=== PATIENT | female | born 1955 | race Caucasian/White ===

== ENCOUNTER 2020-08-04 07:23 | Inpatient (IN) ==
[2020-08-04] MEDS ORDERED: SODIUM CHLORIDE 0.9% 1000ML 1,000 ML IV ONE (07:42)
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
[2020-08-04 08:06] LABS: Basophils # (auto) 0.03 K/uL (0-0.2); Basophils % (auto) 0.2 %; Eosinophils # (auto) 0.08 K/uL (0-0.5); Eosinophils % (auto) 0.6 %; Hematocrit (blood only) 40.3 % (37-47); Hemoglobin 14.3 g/dL (12.0-16.0); Immature Granulocytes # (auto) 0.01 K/uL (0.00-0.02); Immature Granulocytes % (auto) 0.1 %; Lymphocytes # (auto) 1.55 K/uL (1.2-3.4); Lymphocytes % (auto) 11.4 %; Mean Corpuscular Hemoglobin 30.6 pg (25-34); Mean Corpuscular Hgb Conc 35.5 g/dL (32-36); Mean Corpuscular Volume 86.3 fL (80-100); Mean Platelet Volume 10.8 fL (7.4-10.4); Monocytes # (auto) 1.03 K/uL (0.11-0.59); Monocytes % (auto) 7.6 %; Neutrophils # (auto) 10.87 K/uL (1.4-6.5); Neutrophils % (auto) 80.1 %; Platelet Count 256 K/uL (130-400); RDW Coefficient of Variation 13.3 % (11.5-14.5); RDW Standard Deviation 42.1 fL (36.4-46.3); Red Blood Count 4.67 M/uL (4.2-5.4); White Blood Count 13.57 K/uL (4.8-10.8)
[2020-08-04 08:21] LABS: Albumin Level 3.4 gm/dl (3.4-5.0); BUN Creatinine Ratio 11.6 (10-20); Calcium 9.6 mg/dl (8.5-10.1); Creatinine Clr Calc Pharmacy 55.9 ml/min; Est GFR (African American) 77.2; Est GFR (Non-African American) 66.6; Potassium 2.9 mmol/L (3.5-5.1)
[2020-08-04 08:25] LABS: Albumin Globulin Ratio 0.7 (0.9-2); Bilirubin,Total 0.7 mg/dl (0.2-1); Globulin 4.7 gm/dl (2.5-4.0); Total Protein 8.1 gm/dl (6.4-8.2)
--- NOTE | 2020-08-04 08:30 | CT Scan Report ---
CT SCAN OF THE ABDOMEN AND PELVIS WITHOUT IV CONTRAST CLINICAL HISTORY: Left lower quadrant abdominal pain. Bloating. COMPARISON STUDY: Abdominal CT dated 07/31/2020. TECHNIQUE: CT scan of the abdomen and pelvis is performed from the lung bases to the proximal femora. Images are reviewed in the axial, sagittal, and coronal planes. IV contrast was not administered for this examination. Note that the examination is significantly suboptimal without IV contrast. A dose lowering technique was utilized adhering to the principles of ALARA. CT DOSE: 481.60 mGy.cm FINDINGS: Lung bases: The heart is top normal in size and without pericardial effusion. The lung bases are juliana r. There is a small hiatal hernia. Liver: The unenhanced liver is top normal in size and demonstrates diffusely diminished attenuation c onsistent with hepatic steatosis. There is no intrahepatic biliary ductal dilatation. Gallbladder: Surgically absent noting clips in the gallbladder fossa. Spleen: Normal in size and attenuation. Pancreas: Unremarkable. Adrenal glands: Unremarkable. Kidneys: The unenhanced kidneys are normal in size and without hydronephrosis. There are no renal magui culi identified. There is no evidence of contour deforming renal mass lesion. Abdominal vasculature: The abdominal aorta is normal in course and caliber. Bowel: There is moderate to advanced colonic diverticulosis. There is significant wall thickening wit h pericolonic inflammation and fluid involving the sigmoid colon consistent with acute diverticulitis . This has worsened as compared to 07/31/2020. No organized fluid collection is seen on this unenhanc ed examination to indicate abscess. No bowel obstruction is seen. The appendix is well-visualized an d normal. Peritoneum: There is no intraperitoneal free air or abdominal ascites. There is a small fat-containin g umbilical hernia. Lymphadenopathy: Prominent retroperitoneal lymph nodes measure up to 9 mm in short axis. These are li naima reactive. Pelvic viscera: The bladder is normal as visualized. The uterus is surgically absent. No adnexal lesi on is seen. Skeletal structures: The skeletal structures are osteopenic. No lytic or blastic lesions are seen. Sc lerotic change is noted in the sacroiliac joints. IMPRESSION: 1. Moderate to advanced colonic diverticulosis with evidence of severe acute sigmoid diverticulitis. The degree of inflammation has significantly increased as compared to 07/31/2020. 2. No intraperitoneal free air is identified. There is no evidence of organized fluid collection to s uggest abscess on this unenhanced examination. 3. Hepatic steatosis. 4. Additional findings as above. ACT 112: Negative or not required by law. Electronically signed by: Remy Dang M.D. 08/04/2020 8:29 AM
[2020-08-04] MEDS ORDERED: PIPERACILLIN/TAZOBACTAM 4.5 GM/120 ML BAG IV ONE (08:57)
[2020-08-04] MEDS ORDERED: PIPERACILL/TAZOBAC CONSULT ACTIVE PRN ×2 (08:57→12:04)
[2020-08-04] MEDS: POTASSIUM CHLORIDE / WTR 10 MEQ/100 ML PLCT IV SCH ×2 (09:45→12:07)
[2020-08-04] MEDS ORDERED: POTASSIUM CHLORIDE CRTAB 20 MEQ TABCR PO STA ×2 (10:47→19:51)
--- NOTE | 2020-08-04 10:59 | History & Physical Report ---
Date of Service August 04, 2020 Assessment & Plan (1) Sigmoid diverticulitis: This is a 64-year-old female who has significant past medical history of T2DM, HTN, hypothyroidism, IBS, history of C. difficile, history of H. pylori, history of diverticulitis who presents to ED secondary to worsening symptoms in regards to diagnosis of diverticulitis x4 days. Pt failed outpt management of acute diverticulitis with trial of oral augmentin. Admit to med/surg IV zosyn NPO except sips/chips/meds consult general surg IV morphine severe pain/ APAP POmoderate pain - both PRN NSS + 20meq KCL 100cc/hr (2) Hypokalemia: K 2.9 10 meq KCL krider x 2 ordered in ED 40meq KCL orally repeat bmp @ 1900 - replete as necessary (3) HTN (hypertension): BP elevated in ED, likely in setting of pain and did not take a.m. meds continue metoprolol and losartan hold HCTZ for now given NPO status, resume as able (4) T2DM (type 2 diabetes mellitus): a1c 6.8 05/2020 currently not on any hypoglycemic agents BSG 134 on admission, will monitor accuchecks if BSG is consistently elevated will add insulin coverage, but for now monitor (5) Hypothyroid: continue levothyroxine (6) DVT prophylaxis: SQ Lovenox 40mg q24h Disposition: admit to medical Follow up: PCP Dr. Sauer upon discharge Pt was seen and examined in collaboration with Dr. Panda, please see addendum History of Present Illness Chief Complaint: Worsening diverticulitis x4 days. Primary Care Provider: Maisha Sauer MD This is a 64-year-old female who has significant past medical history of T2DM, HTN, hypothyroidism, IBS, history of C. difficile, history of H. pylori, history of diverticulitis who presents to ED secondary to worsening symptoms in regards to diagnosis of diverticulitis x4 days. Patient has been experiencing left lower quadrant abdominal pain for approximately 1 week. She was seen and evaluated in ED on 07/31 and diagnosed with acute sigmoid diverticulitis. Due to history of quinolone allergy she was placed on oral Augmentin x3 days. She was discharged home and unfortunately symptoms have not improved. She continues to have left lower quadrant abdominal pain with occasional radiation up to her left upper quadrant. She has been mostly doing liquid diet although she did try Pasta last evening and symptoms worsen. She denies fever, chills, sweats, lightheadedness, dizziness, syncope, chest pain, shortness breath, palpitations, cough, emesis, dysuria, increased urgency or frequency with urination. She does complain of mild nausea and stools are more, "pasty." Last BM was yesterday. She states overall symptoms started approximately 1 week ago. She was seen and evaluated by PCP recently secondary to nausea, diarrhea and epigastric pain. She was placed on cholestyramine. She states after 1 dose of cholestyramine her symptoms started. She does have prior history of diverticulitis. Last colonoscopy 05/30/2019 revealed sigmoid diverticulosis, hemorrhoids otherwise normal. In ED patient made hemodynamically stable. Lab work notable for leukocytosis 13.57k, H&H stable 14.3 and 40.3, platelet 256, K2.9, BUN 11, creatinine 0.90, glucose 134. CT scan abdomen pelvis revealed moderate to advanced colonic diverticulosis with evidence of severe acute sigmoid diverticulitis. The degree of inflammation is significantly worsened from previous study on 07/31/2020. No intraperitoneal free air is identified and no evidence of organized fluid collection to suggest abscess. She was started on IV Zosyn. Allergies Allergy/AdvReac Type Severity Reaction Status Date / Time Cipro Allergy HIVES Verified 04/04/11 22:43 ciprofloxacin Allergy HIVES Verified 08/04/20 08:30 Quinolones Allergy . Verified 08/04/20 08:30 codeine AdvReac Mild VOMITING Verified 08/04/20 08:30 lidocaine AdvReac Mild EMESIS Verified 08/04/20 08:30 Home Medications Medication Instructions Recorded Confirmed Type hydrochlorothiazide 12.5 mg PO HS 11/09/18 08/04/20 History lactobacillus combination no.4 3,000 mmu cells PO DAILY 11/09/18 08/04/20 History [Probiotic] losartan 50 mg PO HS 11/09/18 08/04/20 History amoxicillin-pot clavulanate 1 tab PO TID #30 tab 07/31/20 08/04/20 Rx [Augmentin] ondansetron 4 mg PO Q6H PRN #14 tab 07/31/20 08/04/20 Rx Lactobacillus rhamnosus GG 1 cap PO QDL 08/04/20 08/04/20 History [Culturelle] atorvastatin 10 mg PO HS 08/04/20 08/04/20 History fluticasone propionate [Flonase] 1 spray INTRANASAL QAM 08/04/20 08/04/20 History levothyroxine 88 mcg PO DAILY 08/04/20 08/04/20 History loratadine [Claritin] 10 mg PO QAM 08/04/20 08/04/20 History metoprolol succinate 50 mg PO QAM 08/04/20 08/04/20 History pantoprazole 40 mg PO QAM 08/04/20 08/04/20 History Past Med/Surg History Medical History C. difficile colitis Diverticulitis H. pylori infection Hemorrhoids History of gastric polyp HTN (hypertension) Hypothyroid IBS (irritable bowel syndrome) PVC (premature ventricular contraction) T2DM (type 2 diabetes mellitus) Surgical History History of colonoscopy with polypectomy History of total abdominal hysterectomy Hx of removal of ovary S/P cholecystectomy Family History Mother Hypertension Social History Smoking Status: Never smoker Hx Alcohol Use: No Hx Substance Use: No Preferred Language: Tunisian Communication Ability: Effective Awning Craftsman Required: No Beliefs That Will Affect Care: Mandaeism Mandaeism Beliefs: Church Refuses blood products marital status: Current Living Situation: Alone current occupational status: retired current occupation: Retired [employer] How many Children do You have: 6 How many Children do You have Comment: raised 6 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 Other Information That Helps Us Care for You: No Feels Safe at Home: Yes Safety Concerns: Feels Safe At This Time Assistive Devices: Glasses Review of Systems Review of Systems: All systems reviewed & are unremarkable except as noted in HPI & below Physical Exam Physical Exam: Constitutional: WD/WN, vitals as above, NAD, sitting up in bed, pleasant, conversing easily Head: Normocephalic, Atraumatic Eyes: PERRL, conjunctivae normal, anicteric sclerae ENMT: external ear and nose normal, oropharynx normal Neck: trachea midline, no thyromegaly normal visual inspection Respiratory: normal respiratory effort, lungs clear to auscultation, no wheeze, rales, rhonchi. Normal insp/exp effort, no accessory muscle use Cardiovascular: RRR, no murmur, no edema Vessels: no JVD or carotid bruit Chest: normal inspection of chest Abdomen: minimally distended, tender to palpation LLQ, no guarding, rebound, rigidity, hypoactive bowel sounds, soft, no hepatosplenomegaly appreciated Musculoskeletal: no cyanosis or clubbing, extremities motor strength 5/5 Skin: no rashes, warm and dry normal turgor Neurologic: PERRL, EOMI, accommodation nl, no face palsy, no dysarthria CN's II-XI intact bilaterally and moves all extremities Psychiatric: A+Ox3, euthymic affect Lymphatic: no cervical or axillary lymphadenopathy : deferred Results & Data Results & [facility] ([facility]) Vital Signs (Past 12 Hours) Vital Signs Temp Pulse Pulse Resp BP BP Pulse Ox 08/04/20 09:23 78 18 166/95 H 98 08/04/20 07:26 36.9 C 96 H 20 137/88 97 Laboratory Results Short CBC 08/04/20 Range/Units 07:48 WBC 13.57 H (4.8-10.8) K/uL Hgb 14.3 (12.0-16.0) g/dL Hct 40.3 (37-47) % Plt Count 256 (130-400) K/uL BMP 08/04/20 07:48 Sodium 136 Potassium 2.9 L Chloride 103 Carbon Dioxide 25 BUN 11 Creatinine 0.90 Glucose 134 H Calcium 9.6 Liver Function 08/04/20 Range/Units 07:48 Total Bilirubin 0.7 (0.2-1) mg/dl AST 22 (15-37) U/L ALT 28 (12-78) U/L Alkaline Phosphatase 108 (45-117) U/L Albumin 3.4 (3.4-5.0) gm/dl Diagnostic Findings CT Abd/Pelvis: IMPRESSION: 1. Moderate to advanced colonic diverticulosis with evidence of severe acute sigmoid diverticulitis. The degree of inflammation has significantly increased as compared to 07/31/2020. 2. No intraperitoneal free air is identified. There is no evidence of organized fluid collection to suggest abscess on this unenhanced examination. 3. Hepatic steatosis. 4. Additional findings as above. Medications Administered Potassium Chloride (K Ralf / Wtr) 10 meq in 100 mls @ 100 mls/hr IV Q1H GUCCI Stop: 08/04/20 11:29 Last Infusion: 08/04/20 10:49 Dose: 0 mls/hr Documented by: [id number] Admin: 08/04/20 09:45 Dose: 100 mls/hr Documented by: [id number] Discontinued Medications Sodium Chloride (Nss 1000ml) 1,000 mls @ 999 mls/hr IV .Q1H1M ONE Stop: 08/04/20 08:42 Last Infusion: 08/04/20 08:59 Dose: 0 mls/hr Documented by: [id number] Admin: 08/04/20 07:57 Dose: 999 mls/hr Documented by: [id number] Piperacillin Sod/Tazobactam Sod (Zosyn) 4.5 gm in 120 mls @ 240 mls/hr IV NOW ONE Stop: 08/04/20 09:26 Last Infusion: 08/04/20 09:40 Dose: 0 mls/hr Documented by: [id number] Admin: 08/04/20 09:09 Dose: 240 mls/hr Documented by: [id number] Code Status & VTE Plan Code Status Full Code VTE Prophylaxis Plan VTE Prophylaxis will be ordered: Yes Supervising Physician Co-Signing Physician Notes Attending addendum The patient was seen and examined in medical floor She was admitted with left lower quadrant pain which has not been getting any better with Augmentin for diverticulitis She has been in feeling a little bit better since admission Denies any fever and/or chills, any nausea and or vomiting On examination No apparent distress at rest Hemodynamically stable Chest-clear to auscultate bilaterally Heart-S1-S2, regular. No murmur appreciated Abdomen-soft, mildly tender left lower quadrant, no guarding and no rigidity. Bowel sounds present Labs and imaging studies reviewed Has acute diverticulitis.Surgery consulted. Continue with current intravenous antibiotic Intravenous fluids and pain medications Agree with assessment and plan as outlined above by FORTINO Edwards Dr
[2020-08-04] MEDS ORDERED: MAGNESIUM HYDROXIDE SUSP 30 ML UDC PO PRN (12:04)
[2020-08-04] MEDS ORDERED: DEXTROSE 50% 50 ML SYRINGE IV PRN (12:04)
[2020-08-04] MEDS ORDERED: GLUCOSE 10 TABS/TUBE PO PRN (12:04)
[2020-08-04] MEDS ORDERED: METOPROLOL SUCC 50MG EXT REL TAB PO SCH (12:04)
[2020-08-04] MEDS ORDERED: GLUCOSE 40% GEL 15 GM TUBE PO PRN (12:04)
[2020-08-04] MEDS ORDERED: GLUCAGON FOR INJ 1 MG VIAL SQ PRN (12:04)
[2020-08-04] MEDS ORDERED: CARBOHYDRATES FOR HYPOGLYCEMIA PO PRN (12:04)
[2020-08-04] MEDS ORDERED: ONDANSETRON INJ 2 MG/ML 2 ML VIAL IV PRN (12:04)
[2020-08-04] MEDS ORDERED: ALUMINUM/MAGNESIUM SUSP 30 ML UDC PO PRN (12:04)
[2020-08-04] MEDS ORDERED: ACETAMINOPHEN 325 MG TAB PO PRN (12:04)
[2020-08-04] MEDS ORDERED: MoRPHine SULFATE 4 MG/ML 1 ML CARP\\VIAL IV PRN (12:04)
[2020-08-04] MEDS ORDERED: POLYETHYLENE (MIRALAX) 17 GM PACK PO PRN (12:04)
--- NOTE | 2020-08-04 13:13 | Surgery Consultation ---
Date of Consultation August 04, 2020 Assessment & Plan (1) Sigmoid diverticulitis: This is a 64yF with a PMH of DM2, HTN, hypothyroid, h/o cholecystectomy and hysterectomy who presents to the [facility] ED on 08/04/20 with complaints of left lower quadrant abdominal pain. The patient initially presented to the ER on 07/31 and was diagnosed with diverticulitis, she was prescribed a course of oral augmentin and was discharged to home. Unfortunately patient's symptoms worsened prompting her to return for further evaluation. Repeat CT scan noted moderate to advanced colonic diverticulosis with evidence of severe acute sigmoid diverticulitis, and the degree of inflammation has significantly increased as compared to 07/31/2020. There is not evidence of abscess on this scan. Today WBC 13 and patient is afebrile with stable vitals. On examination patient's abdomen is soft, mildly distended, and is ttp infraumbilically and towards LLQ. She does have a history of diverticulitis, but states her last flare up was >10 years ago. Last colonoscopy 1 year ago apparently unremarkable. Patient is currently stable, therefore no plans for acute surgical intervention at this time. Agree with admission for IV abx, IVF, and NPO with sips and bowel rest for today. We will continue to follow patient closely. History of Present Illness Attending Physician: Darien Panda MD History of Present Illness This is a 64yF with a PMH of DM2, HTN, hypothyroid, h/o cholecystectomy and hysterectomy who presents to the [facility] ED on 08/04/20 with complaints of abdominal pain. Patient reports having some right sided upper abdominal pain starting about 3 weeks ago, she went to her PCP who ordered her an US and per patient it was unremarkable. The pain was thought to be gastric reflux in nature. Last she returned to her PCP's office due to ongoing pain that radiated towards her back well as she started having some loose yellow appearing stool. She was prescribed cholestyramine and took one dose when she subsequently developed LLQ pain. She ultimately decided to come to the ED on 07/31 due to the LLQ pain and a CT a/p at that time revealed acute sigmoid diverticulitis without abscess or perforation. She was discharged to home from the ER with a course of Augmentin. Patient reports taking the abx, however she has noticed worsening LLQ pain that comes and goes. When the pain comes she rates it a 7 or 8/10 in severity. Due to this she returned to the ER and a repeat CT a/p showed moderate to advanced colonic diverticulosis with evidence of severe acute sigmoid dive rticulitis. The degree of inflammation has significantly increased as compared to 07/31/2020. WBC 13 and patient afebrile with stable vitals. Patient reports having a bout of loose stool yesterday and reports passing some flatus. She feels bloated and nauseated at times. She denies any fevers/chills, bouts of emesis, chest pain or shortness of breath. She states she has had about ~4 episodes of diverticulitis in the past, but her last flare up was almost 10 years ago. She reports having a colonoscopy last May due to history of polyps, but states it was unremarkable at that time. Allergies Allergy/AdvReac Type Severity Reaction Status Date / Time Cipro Allergy HIVES Verified 04/04/11 22:43 ciprofloxacin Allergy HIVES Verified 08/04/20 08:30 Quinolones Allergy . Verified 08/04/20 08:30 codeine AdvReac Mild VOMITING Verified 08/04/20 08:30 lidocaine AdvReac Mild EMESIS Verified 08/04/20 08:30 Home Medications Medication Instructions Recorded Confirmed Type hydrochlorothiazide 12.5 mg PO HS 11/09/18 08/04/20 History lactobacillus combination no.4 3,000 mmu cells PO DAILY 11/09/18 08/04/20 History [Probiotic] losartan 50 mg PO HS 11/09/18 08/04/20 History amoxicillin-pot clavulanate 1 tab PO TID #30 tab 07/31/20 08/04/20 Rx [Augmentin] ondansetron 4 mg PO Q6H PRN #14 tab 07/31/20 08/04/20 Rx Lactobacillus rhamnosus GG 1 cap PO QDL 08/04/20 08/04/20 History [Culturelle] atorvastatin 10 mg PO HS 08/04/20 08/04/20 History fluticasone propionate [Flonase] 1 spray INTRANASAL QAM 08/04/20 08/04/20 History levothyroxine 88 mcg PO DAILY 08/04/20 08/04/20 History loratadine [Claritin] 10 mg PO QAM 08/04/20 08/04/20 History metoprolol succinate 50 mg PO QAM 08/04/20 08/04/20 History pantoprazole 40 mg PO QAM 08/04/20 08/04/20 History Patient History Medical History C. difficile colitis Diverticulitis H. pylori infection Hemorrhoids History of gastric polyp HTN (hypertension) Hypothyroid IBS (irritable bowel syndrome) PVC (premature ventricular contraction) T2DM (type 2 diabetes mellitus) Surgical History History of colonoscopy with polypectomy History of total abdominal hysterectomy Hx of removal of ovary S/P cholecystectomy Family History Mother Hypertension Social History Smoking Status: Never smoker Hx Alcohol Use: No Hx Substance Use: No Preferred Language: Italian Communication Ability: Effective Doctor Of Nursing Practice Required: No Beliefs That Will Affect Care: Temple Temple Beliefs: Rastafarian Refuses blood products marital status: Current Living Situation: Alone current occupational status: retired current occupation: Retired [employer] How many Children do You have: 6 How many Children do You have Comment: raised 6 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 Other Information That Helps Us Care for You: No Feels Safe at Home: Yes Safety Concerns: Feels Safe At This Time Assistive Devices: Walker Review of Systems Constitutional: no fever and no chills Respiratory: no dyspnea Cardiovascular: no chest pain Gastrointestinal: + abdominal pain (RUQ/epigastric regions and LLQ), + bloating, + nausea and + diarrhea/loose stools; no vomiting Physical Exam Physical Exam: awake/alert Constitutional: well developed, well nourished and comfortable; no acute distress Respiratory: normal respiratory effort Gastrointestinal (Abdomen): Inspection/Auscultation: + abdomen distended (mild) and + abdominal surgical scar (from prior hysterectomy and leidy; well healed) Percussion/Palpation: + abdomen tender (ttp infraumbilically and t owards LLQ) and abdomen soft Results & Data ([facility]) Vital Signs (Past 12 Hours) Vital Signs Temp Pulse Pulse Pulse Resp BP BP 08/04/20 12:16 36.7 C 74 18 127/83 08/04/20 12:00 36.8 C 74 18 127/83 08/04/20 11:00 80 18 154/80 H 08/04/20 09:23 78 18 166/95 H 08/04/20 07:26 36.9 C 96 H 20 137/88 Pulse Ox 08/04/20 12:16 100 08/04/20 12:00 100 08/04/20 11:00 98 08/04/20 09:23 98 08/04/20 07:[address] SCAN OF THE ABDOMEN AND PELVIS WITHOUT IV CONTRAST CLINICAL HISTORY: Left lower quadrant abdominal pain. Bloating. COMPARISON STUDY: Abdominal CT dated 07/31/2020. TECHNIQUE: CT scan of the abdomen and pelvis is performed from the lung bases to the proximal femora. Images are reviewed in the axial, sagittal, and coronal planes. IV contrast was not administered for this examination. Note that the examination is significantly suboptimal without IV contrast. A dose lowering technique was utilized adhering to the principles of ALARA. CT DOSE: 481.60 mGy.cm FINDINGS: Lung bases: The heart is top normal in size and without pericardial effusion. The lung bases are clear. There is a small hiatal hernia. Liver: The unenhanced liver is top normal in size and demonstrates diffusely diminished attenuation consistent with hepatic steatosis. There is no intrahepatic biliary ductal dilatation. Gallbladder: Surgically absent noting clips in the gallbladder fossa. Spleen: Normal in size and attenuation. Pancreas: Unremarkable. Adrenal glands: Unremarkable. Kidneys: The unenhanced kidneys are normal in size and without hydronephrosis. There are no renal calculi identified. There is no evidence of contour deforming renal mass lesion. Abdominal vasculature: The abdominal aorta is normal in course and caliber. Bowel: There is moderate to advanced colonic diverticulosis. There is significant wall thickening with pericolonic inflammation and fluid involving the sigmoid colon consistent with acute diverticulitis. This has worsened as compared to 07/31/2020. No organized fluid collection is seen on this unenhanced examination to indicate abscess. No bowel obstruction is seen. The appendix is well-visualized and normal. Peritoneum: There is no intraperitoneal free air or abdominal ascites. There is a small fat-containing umbilical hernia. Lymphadenopathy: Prominent retroperitoneal lymph nodes measure up to 9 mm in short axis. These are likely reactive. Pelvic viscera: The bladder is normal as visualized. The uterus is surgically absent. No adnexal lesion is seen. Skeletal structures: The skeletal structures are osteopenic. No lytic or blastic lesions are seen. Sclerotic change is noted in the sacroiliac joints. IMPRESSION: 1. Moderate to advanced colonic diverticulosis with evidence of severe acute sigmoid diverticulitis. The degree of inflammation has significantly increased as compared to 07/31/2020. 2. No intraperitoneal free air is identified. There is no evidence of organized fluid collection to suggest abscess on this unenhanced examination. 3. Hepatic steatosis. 4. Additional findings as above. ACT 112: Negative or not required by law Electronically signed by: Remy Dang M.D. 08/04/2020 8:29 AM PG Care Time/CCT Total # of Minutes Spent Total Time Spent with Patient: Total time spent is greater than 50% in coordination of care (as documented) at patient's floor/unit and/or counseling patient: Coding Level of Care Code 73405 Initial Inpt Care Lvl 3 Diagnoses Sigmoid diverticulitis K57.32
[2020-08-04] MEDS: NSS + 20MEQ KCL 20 MEQ/1,000 ML BAG IV SCH (13:25)
[2020-08-04] MEDS: METOPROLOL SUCC 50MG EXT REL TAB PO SCH (13:25)
[2020-08-04] MEDS: PIPERACILLIN/TAZOBACTAM 3.375 GM in DEXTROSE 5% 100 ML IV SCH ×2 (14:43→21:48)
[2020-08-04] MEDS ORDERED: Nursing to Pharmacy Communication SCH (18:30)
[2020-08-04 19:30] LABS: Appearance Urine Clear (Clear); Bilirubin Urine Negative (Negative); Blood Urine Negative (Negative); Color Urine Yellow; Glucose Urine UA Negative (Negative); Ketones Urine Trace (Negative); Leukocyte Esterase Urine Negative (Negative); Nitrite Urine Negative (Negative); Protein Urine Negative (Negative); Specific Gravity Urine 1.019 (1.000-1.030); Urobilinogen Urine Negative (Negative)
[2020-08-04 19:43] LABS: BUN Creatinine Ratio 8.3 (10-20); Calcium 8.8 mg/dl (8.5-10.1); Creatinine Clr Calc Pharmacy 59.3 ml/min; Est GFR (African American) 82.8; Est GFR (Non-African American) 71.4; Potassium 3.4 mmol/L (3.5-5.1)
[2020-08-04] MEDS ORDERED: ATORVASTATIN 10 MG TAB PO SCH (21:00)
[2020-08-04] MEDS: ENOXAPARIN INJ 40 MG/0.4 ML SYR SQ SCH (21:48)
[2020-08-04] MEDS: LOSARTAN POTASSIUM 50 MG TAB PO SCH (21:49)
[2020-08-04] MEDS ORDERED: ACETAMINOPHEN 1000 MG/100 ML IV IV PRN (22:24)
[2020-08-05] MEDS: NSS + 20MEQ KCL 20 MEQ/1,000 ML BAG IV SCH ×3 (00:53→23:47)
[2020-08-05] MEDS: LEVOTHYROXINE SODIUM 88 MCG TABLET PO SCH (05:45)
[2020-08-05] MEDS: PIPERACILLIN/TAZOBACTAM 3.375 GM in DEXTROSE 5% 100 ML IV SCH ×3 (05:45→22:10)
[2020-08-05 06:34] LABS: Basophils # (auto) 0.01 K/uL (0-0.2); Basophils % (auto) 0.1 %; Eosinophils # (auto) 0.08 K/uL (0-0.5); Eosinophils % (auto) 0.9 %; Hematocrit (blood only) 35.6 % (37-47); Hemoglobin 12.1 g/dL (12.0-16.0); Immature Granulocytes # (auto) 0.01 K/uL (0.00-0.02); Immature Granulocytes % (auto) 0.1 %; Lymphocytes # (auto) 1.38 K/uL (1.2-3.4); Lymphocytes % (auto) 15.9 %; Mean Corpuscular Hemoglobin 30.1 pg (25-34); Mean Corpuscular Volume 88.6 fL (80-100); Mean Platelet Volume 10.6 fL (7.4-10.4); Monocytes # (auto) 0.86 K/uL (0.11-0.59); Monocytes % (auto) 9.9 %; Neutrophils # (auto) 6.32 K/uL (1.4-6.5); Neutrophils % (auto) 73.1 %; Platelet Count 237 K/uL (130-400); RDW Coefficient of Variation 13.4 % (11.5-14.5); RDW Standard Deviation 43.7 fL (36.4-46.3); Red Blood Count 4.02 M/uL (4.2-5.4); White Blood Count 8.66 K/uL (4.8-10.8)
[2020-08-05 07:05] LABS: Albumin Level 2.7 gm/dl (3.4-5.0); BUN Creatinine Ratio 9.6 (10-20); Calcium 8.4 mg/dl (8.5-10.1); Creatinine Clr Calc Pharmacy 61.5 ml/min; Est GFR (African American) 86.4; Est GFR (Non-African American) 74.6; Potassium 3.5 mmol/L (3.5-5.1)
[2020-08-05 07:08] LABS: Albumin Globulin Ratio 0.7 (0.9-2); Bilirubin,Total 0.7 mg/dl (0.2-1); Globulin 4.1 gm/dl (2.5-4.0); Total Protein 6.8 gm/dl (6.4-8.2)
[2020-08-05] MEDS ORDERED: METOPROLOL SUCC 50MG EXT REL TAB PO SCH (09:00)
[2020-08-05] MEDS: PANTOprazole 40 MG TAB PO SCH (09:33)
[2020-08-05] MEDS: ADVANCED PROBIOTIC 1250 MG CAPSULE PO SCH (09:33)
[2020-08-05] MEDS: LORATADINE 10 MG TAB PO SCH (09:33)
[2020-08-05] MEDS: METOPROLOL SUCC 50MG EXT REL TAB PO SCH (09:33)
[2020-08-05] MEDS: ATORVASTATIN 10 MG TAB PO SCH (09:33)
[2020-08-05] MEDS: FLUTICASONE PROPIONATE NA SPR 16 GM BTL NAE SCH (09:34)
--- NOTE | 2020-08-05 10:31 | Surgery Progress Note ---
Date of Service August 05, 2020 Assessment & Plan (1) Sigmoid diverticulitis: Clinically much improved. White blood cell count is now also normal. Would keep n.p.o./ice chips for today and continue IV antibiotics. Hopefully could start clears tomorrow. Doubt surgical intervention will be needed however we will continue to follow along for now. Admission and Anticipated Discharge Date Admission Date: August 04, 2020 Subjective Patient seen. Feeling much better today. The distention and discomfort are much improved. Physical Exam Constitutional: WD/WN, vitals as above no acute distress and not ill appearing Eyes: PERRL, conjunctivae normal, anicteric sclerae EOM intact bilaterally ENMT: external ear and nose normal, oropharynx normal Ears: no hearing i mpairment Neck: trachea midline, no thyromegaly Respiratory: normal respiratory effort; no respiratory distress and does not use accessory muscles Cardiovascular: Rate/Rhythm: regular rate and regular rhythm Gastrointestinal (Abdomen): Abdomen is soft. Mild left lower quadrant tenderness. No peritoneal signs. Minimal distention. Skin: no rashes, warm and dry Psychiatric: Orientation: alert, oriented x 3 and cooperative Results & Data ([facility]) Vital Signs (Past 12 Hours) Vital Signs Temp Pulse Resp BP Pulse Ox 08/05/20 07:00 36.5 C 56 L 18 113/72 99 08/04/20 23:09 37.0 C 65 16 122/77 98 PG Care Time/CCT Total # of Minutes Spent Total Time Spent with Patient: Total time spent is greater than 50% in coordination of care (as documented) at patient's floor/unit and/or counseling patient: Coding Level of Care Code 99511 Subseq Hosp Care Lvl 3 Diagnoses Sigmoid diverticulitis K57.32
--- NOTE | 2020-08-05 15:28 | Hospitalist Progress Note ---
Date of Service August 05, 2020 Assessment & Plan (1) Sigmoid diverticulitis: This is a 64-year-old female who has significant past medical history of T2DM, HTN, hypothyroidism, IBS, history of C. difficile, history of H. pylori, history of diverticulitis who presents to ED secondary to worsening symptoms in regards to diagnosis of diverticulitis x4 days. Pt failed outpt management of acute diverticulitis with trial of oral augmentin. Has been improving since admission Has been on IV zosyn and will continue as of today. Likely discharge home on oral Augmentin.(She is allergic to Cipro and Flagyl) NPO except sips/chips/meds Appreciate input and recommendation from general surgery IV morphine severe pain/ APAP POmoderate pain - both PRN Continue NSS + 20meq KCL 100cc/hr Clinically much better-no fever and/or chills and white count has been normalized Likely to start clears and advance diet as tolerated from tomorrow Possible discharge tomorrow (2) Hypokalemia: K 2.9 10 meq KCL krider x 2 ordered in ED 40meq KCL orally Potassium has been normalized (3) HTN (hypertension): BP elevated in ED, likely in setting of pain and did not take a.m. meds continue metoprolol and losartan hold HCTZ for now given NPO status, resume as able (4) T2DM (type 2 diabetes mellitus): a1c 6.8 05/2020 currently not on any hypoglycemic agents BSG 134 on admission, will monitor accuchecks if BSG is consistently elevated will add insulin coverage, but for now monitor (5) Hypothyroid: continue levothyroxine (6) DVT prophylaxis: SQ Lovenox 40mg q24h Disposition: admit to medical Admission and Anticipated Discharge Date Admission Date: August 04, 2020 Subjective 08/05/2020 The patient was seen and examined in medical floor He has been feeling a lot better today Denies any significant abdominal pain, no distention and no nausea and or vomiting No fever and/or chills Review of Systems Review of Systems: All systems reviewed and are unremarkable except as noted below Physical Exam Physical Exam: Lying in bed comfortably Constitutional: well developed, well nourished and + obese; not ill appearing Eyes: PERRL, conjunctivae normal, anicteric sclerae ENMT: external ear and nose normal, oropharynx normal Neck: trachea midline, no thyromegaly Respiratory: normal respiratory effort; no respiratory distress Auscultation: lungs clear to auscultation bilaterally Cardiovascular: Rate/Rhythm: regular rate and regular rhythm Heart Sounds: no murmur Extremities: no edema Gastrointestinal (Abdomen): Inspection/Auscultation: normal bowel sounds; abdomen not distended Percussion/Palpation: + abdomen tender (Intimately tender left lower quadrant without any guarding and no rigidity) and abdomen soft Musculoskeletal: No acute arthritis in any joint Neurologic: Alert, awake and oriented x3. No focal sensory or motor deficit appreciated Psychiatric: A+Ox3, euthymic affect Results & Data Results & Data ([facility]) Vital Signs (Past 12 Hours) Vital Signs Temp Pulse Resp BP Pulse Ox 08/05/20 15:05 36.5 C 56 L 19 141/76 H 99 08/05/20 07:00 36.5 C 56 L 18 113/72 99 Laboratory Results Short CBC 08/05/20 Range/Units 06:12 WBC 8.66 (4.8-10.8) K/uL Hgb 12.1 (12.0-16.0) g/dL Hct 35.6 L (37-47) % Plt Count 237 (130-400) K/uL BMP 08/04/20 08/05/20 19:04 06:12 Sodium 140 141 Potassium 3.4 L D 3.5 Chloride 109 H 111 H Carbon Dioxide 25 27 BUN 7 8 Creatinine 0.85 0.82 Glucose 101 H 95 Calcium 8.8 8.4 L Liver Function 08/05/20 Range/Units 06:12 Total Bilirubin 0.7 (0.2-1) mg/dl AST 25 (15-37) U/L ALT 30 (12-78) U/L Alkaline Phosphatase 88 (45-117) U/L Albumin 2.7 L (3.4-5.0) gm/dl Urine 08/04/20 Range/Units 18:40 Urine Color Yellow Urine Appearance Clear (Clear) Urine pH 7.0 (4.5-7.5) Ur Specific [place] 1.019 (1.000-1.030) Urine Protein Negative (Negative) Urine Glucose (UA) Negative (Negative) Medications Administered Current Inpatient Medications Acetaminophen (Acetaminophen 325 Mg Tab) 650 mg PO Q4H PRN PRN Reason: pain/fever Stop: 09/03/20 12:03 Last Admin: 08/05/20 09:38 Dose: 650 mg Documented by: Acetaminophen (Acetaminophen 1000 Mg/100 Ml Iv) 1,000 mg IV TID PRN PRN Reason: Pain or Fever Stop: 08/07/20 22:23 Last Admin: 08/04/20 22:36 Dose: 1,000 mg Documented by: Al Hydrox/Mg Hydrox/Simethicone (Aluminum/Magnesium Susp 30 Ml Udc) 30 ml PO Q6H PRN PRN Reason: Dyspepsia Stop: 09/03/20 12:03 Atorvastatin Calcium (Atorvastatin 10 Mg Tab) 10 mg PO QAM [facility] Stop: 09/04/20 08:59 Last Admin: 08/05/20 09:33 Dose: 10 mg Documented by: Dextrose (Dextrose 50% 50 Ml Syringe) 25 - 50 ml IV UD PRN; Protocol PRN Reason: Hypoglycemia Protocol Stop: 09/03/20 12:03 Enoxaparin Sodium (Enoxaparin Inj 40 Mg/0.4 Ml Syr) 40 mg SQ Q24H [facility] Stop: 09/03/20 21:59 Last Admin: 08/04/20 21:48 Dose: 40 mg Documented by: Fluticasone Propionate (Fluticasone Propionate Na Spr 16 Gm Btl) 1 sprays [facility] Stop: 09/04/20 08:59 Last Admin: 08/05/20 09:34 Dose: 1 sprays Documented by: Glucagon (Glucagon For Inj 1 Mg Vial) 1 mg SQ UD PRN; Protocol PRN Reason: Hypoglycemia Protocol Stop: 09/03/20 12:03 Glucose (Glucose 10 Tabs/Tube) 4 - 8 tabs PO UD PRN; Protocol PRN Reason: Hypoglycemia Protocol Stop: 09/03/20 12:03 Glucose (Glucose 40% Gel 15 Gm Tube) 15 - 30 gm PO UD PRN; Protocol PRN Reason: Hypoglycemia Protocol Stop: 09/03/20 12:03 Potassium Chloride/Sodium Chloride (Normal Saline W/20 Meq Kcl) 20 meq in 1,000 mls @ 100 mls/hr IV .Q10H [facility] Stop: 09/03/20 12:29 Last Admin: 08/05/20 11:21 Dose: 100 mls/hr Documented by: Piperacillin Sod/Tazobactam (Sod 3.375 gm/ Dextrose) 115 mls @ 28.75 mls/hr IV Q8H [facility]; Protocol Stop: 08/14/20 13:59 Last Admin: 08/05/20 14:31 Dose: 28.8 mls/hr Documented by: Lactobacillus Acidoph/Casei/Rhamnos (Advanced Probiotic 1250 Mg Capsule) 2 cap PO DAILY [facility] Stop: 09/04/20 08:59 Last Admin: 08/05/20 09:33 Dose: 2 cap Documented by: Levothyroxine Sodium (Levothyroxine Sodium 88 Mcg Tablet) 88 mcg PO DAILYBB [facility] Stop: 09/04/20 06:29 Last Admin: 08/05/20 05:45 Dose: 88 mcg Documented by: Loratadine (Loratadine 10 Mg Tab) [facility] Stop: 09/04/20 08:59 Last Admin: 08/05/20 09:33 Dose: 10 mg Documented by: Losartan Potassium (Losartan Potassium 50 Mg Tab) 50 mg PO [facility] Stop: 09/03/20 20:59 Last Admin: 08/04/20 21:49 Dose: 50 mg Documented by: Magnesium Hydroxide (Magnesium Hydroxide Susp 30 Ml Udc) 30 ml PO Q6H PRN PRN Reason: Constipation Stop: 09/03/20 12:03 Metoprolol Succinate (Metoprolol Succ 50mg Ext Rel Tab) 50 mg PO [facility] Stop: 09/03/20 12:03 Last Admin: 08/05/20 09:33 Dose: 50 mg Documented by: Miscellaneous (Carbohydrates For Hypoglycemia ) 15 - 30 gm PO UD PRN PRN Reason: Hypoglycemia Protocol Stop: 09/03/20 12:03 Miscellaneous Information (Piperacill/Tazobac Consult Active) 1 ea N/A UD PRN PRN Reason: Consult Stop: 09/03/20 12:03 Morphine Sulfate (Morphine Sulfate 4 Mg/Ml 1 Ml Carp\Vial) 4 mg IV Q4H PRN PRN Reason: Severe Pain Stop: 08/18/20 12:03 Ondansetron HCl (Ondansetron Inj 2 Mg/Ml 2 Ml Vial) 4 mg IV Q6H PRN PRN Reason: Nausea Stop: 09/03/20 12:03 Pantoprazole Sodium (Pantoprazole 40 Mg Tab) 40 mg PO [facility] Stop: 09/04/20 08:59 Last Admin: 08/05/20 09:33 Dose: 40 mg Documented by: Polyethylene Glycol (Polyethylene (Miralax) 17 Gm Pack) 17 gm PO DAILY PRN PRN Reason: Constipation Stop: 09/03/20 12:03
[2020-08-05] MEDS: LOSARTAN POTASSIUM 50 MG TAB PO SCH (21:14)
[2020-08-05] MEDS: ENOXAPARIN INJ 40 MG/0.4 ML SYR SQ SCH (21:14)
[2020-08-06 05:30] LABS: Basophils # (auto) 0.03 K/uL (0-0.2); Basophils % (auto) 0.5 %; Eosinophils % (auto) 1.5 %; Hematocrit (blood only) 35.7 % (37-47); Hemoglobin 11.8 g/dL (12.0-16.0); Immature Granulocytes # (auto) 0.02 K/uL (0.00-0.02); Immature Granulocytes % (auto) 0.3 %; Lymphocytes # (auto) 1.75 K/uL (1.2-3.4); Lymphocytes % (auto) 26.3 %; Mean Corpuscular Hemoglobin 29.5 pg (25-34); Mean Corpuscular Hgb Conc 33.1 g/dL (32-36); Mean Corpuscular Volume 89.3 fL (80-100); Mean Platelet Volume 10.5 fL (7.4-10.4); Monocytes # (auto) 0.34 K/uL (0.11-0.59); Monocytes % (auto) 5.1 %; Neutrophils # (auto) 4.42 K/uL (1.4-6.5); Neutrophils % (auto) 66.3 %; Platelet Count 220 K/uL (130-400); RDW Coefficient of Variation 13.2 % (11.5-14.5); RDW Standard Deviation 43.2 fL (36.4-46.3); White Blood Count 6.66 K/uL (4.8-10.8)
[2020-08-06] MEDS: LEVOTHYROXINE SODIUM 88 MCG TABLET PO SCH (05:40)
[2020-08-06] MEDS: PIPERACILLIN/TAZOBACTAM 3.375 GM in DEXTROSE 5% 100 ML IV SCH ×3 (05:40→21:29)
[2020-08-06 06:01] LABS: Albumin Level 2.7 gm/dl (3.4-5.0); BUN Creatinine Ratio 10.4 (10-20); Calcium 8.4 mg/dl (8.5-10.1); Creatinine Clr Calc Pharmacy 73.1 ml/min; Est GFR (African American) 105.1; Est GFR (Non-African American) 90.7; Magnesium 2.1 mg/dl (1.8-2.4); Potassium 3.9 mmol/L (3.5-5.1)
[2020-08-06 06:04] LABS: Albumin Globulin Ratio 0.7 (0.9-2); Bilirubin,Total 0.4 mg/dl (0.2-1); Globulin 3.8 gm/dl (2.5-4.0); Phosphorus 2.3 mg/dl (2.5-4.9); Total Protein 6.5 gm/dl (6.4-8.2)
--- NOTE | 2020-08-06 08:28 | Surgery Progress Note ---
Date of Service August 06, 2020 Assessment & Plan (1) Sigmoid diverticulitis: Patient is clinically feeling much better WBC 6 and patient afebrile She is passing flatus and BM's Abdominal exam improved Will start advancing diet, can begin clears this morning Admission and Anticipated Discharge Date Admission Date: August 04, 2020 Subjective Patient states she is feeling much better. Denies nausea/vomiting. Has some lingering LLQ pain, but otherwise much improved. Tolerating sips of liquids. She is passing flatus and some loose BM's. Physical Exam Physical Exam: awake/alert, ambulating independently Respiratory: normal respiratory effort Gastrointestinal (Abdomen): Inspection/Auscultation: abdomen not distended Percussion/Palpation: + abdomen tender (mild discomfort to palpation in llq) and abdomen soft Results & Data ([facility]) Vital Signs (Past 12 Hours) Vital Signs Temp Pulse Resp BP Pulse Ox 08/06/20 07:19 36.5 C 59 L 18 145/68 H 96 08/05/20 23:42 37.1 C 59 L 16 134/76 99 08/05/20 21:11 36.8 C 67 18 157/85 H 99 PG Care Time/CCT Total # of Minutes Spent Total Time Spent with Patient: Total time spent is greater than 50% in c oordination of care (as documented) at patient's floor/unit and/or counseling patient: Coding Level of Care Code 67823 Subseq Hosp Care Lvl 1 Diagnoses Sigmoid diverticulitis K57.32
[2020-08-06] MEDS: NSS + 20MEQ KCL 20 MEQ/1,000 ML BAG IV SCH ×2 (08:56→17:41)
[2020-08-06] MEDS: ATORVASTATIN 10 MG TAB PO SCH (08:56)
[2020-08-06] MEDS: PANTOprazole 40 MG TAB PO SCH (08:56)
[2020-08-06] MEDS: ADVANCED PROBIOTIC 1250 MG CAPSULE PO SCH (08:56)
[2020-08-06] MEDS: FLUTICASONE PROPIONATE NA SPR 16 GM BTL NAE SCH (08:56)
[2020-08-06] MEDS: METOPROLOL SUCC 50MG EXT REL TAB PO SCH (08:56)
[2020-08-06] MEDS: LORATADINE 10 MG TAB PO SCH (08:56)
[2020-08-06] MEDS ORDERED: POTASSIUM PHOS 3 MMOL/1 ML INFUSION IV ONE (09:44)
[2020-08-06] MEDS ORDERED: POTASSIUM PHOSPHATE 9 MMOL in SODIUM CHLORIDE 0.9% 250 ML IV ONE (10:00)
--- NOTE | 2020-08-06 19:05 | Hospitalist Progress Note ---
Date of Service August 06, 2020 Assessment & Plan (1) Sigmoid diverticulitis: Patient is a 64 yr female with H/O DM II, HTN, hypothyroidism, IBS, history of C. difficile, history of H. pylori, history of diverticulitis who presents to ED secondary to worsening symptoms in regards to diagnosis of diverticulitis x4 days. Acute sigmoid diverticulitis -CT ABD: Moderate to advanced colonic diverticulosis with evidence of severe acute sigmoid diverticulitis. The degree of inflammation has significantly increased as compared to 07/31/2020. No intraperitoneal free air is identified. There is no evidence of organized fluid collection to suggest abscess on this unenhanced examination. Hepatic steatosis. -Clinical improvement -Appreciate surgery input -Continue IV antibiotics -Advance diet as tolerated -Continue IV fluids Diarrhea Stool for C. difficile negative Hypophosphatemia Replete electrolytes as needed (2) Hypokalemia: Replete as needed Monitor (3) HTN (hypertension): BP stable continue metoprolol and losartan Resume HCTZ as able (4) T2DM (type 2 diabetes mellitus): a1c 6.8 05/2020 currently not on any hypoglycemic agents Monitor BGs (5) Hypothyroid: continue levothyroxine (6) DVT prophylaxis: SQ Lovenox CODE STATUS Full Code Disposition: Plan to discharge home when medically stable Admission and Anticipated Discharge Date Admission Date: August 04, 2020 Subjective Patient is seen and examined at bedside Abdominal pain much improved States having 2 loose bowel movements this morning Tolerating liquid diet Denies chest pain, shortness of breath, dizziness, nausea Offers no other complaints Review of Systems Review of Systems: All systems reviewed & are unremarkable except as noted in HPI & below Physical Exam Physical Exam: Physical Exam: Vitals signs as noted above General Appearance:Obese, no apparent distress Head: normocephalic, Atraumatic Eyes: normal inspection, EOMI Neck: supple, Trachea midline Respiratory/Chest: Normal breath sounds, CTA, No accessory muscle use Cardiovascular: S1, S2, No murmur Abdomen/GI:Soft, Left mild tender, Bowel sounds present Extremities/Musculoskelatal:normal inspection, no edema Neurologic/Psych:AAOX3, grossly no focal neurological deficits Skin: normal color, warm Results & Data Results & Data ([facility]) Vital Signs (Past 12 Hours) Vital Signs Temp Pulse Pulse Resp BP Pulse Ox 08/06/20 14:56 36.8 C 58 L 16 144/76 H 99 08/06/20 08:57 63 08/06/20 07:19 36.5 C 59 L 18 145/68 H 96 Laboratory Results Short CBC 08/06/20 Range/Units 05:21 WBC 6.66 (4.8-10.8) K/uL Hgb 11.8 L (12.0-16.0) g/dL Hct 35.7 L (37-47) % Plt Count 220 (130-400) K/uL BMP 08/06/20 05:21 Sodium 142 Potassium 3.9 Chloride 113 H Carbon Dioxide 22 BUN 7 Creatinine 0.69 Glucose 65 L Calcium 8.4 L Liver Function 08/06/20 Range/Units 05:21 Total Bilirubin 0.4 (0.2-1) mg/dl AST 19 (15-37) U/L ALT 28 (12-78) U/L Alkaline Phosphatase 81 (45-117) U/L Albumin 2.7 L (3.4-5.0) gm/dl
[2020-08-06] MEDS: ENOXAPARIN INJ 40 MG/0.4 ML SYR SQ SCH (21:29)
[2020-08-06] MEDS: LOSARTAN POTASSIUM 50 MG TAB PO SCH (21:29)
[2020-08-07] MEDS: PIPERACILLIN/TAZOBACTAM 3.375 GM in DEXTROSE 5% 100 ML IV SCH (05:34)
[2020-08-07] MEDS: LEVOTHYROXINE SODIUM 88 MCG TABLET PO SCH (05:35)
[2020-08-07 06:58] LABS: BUN Creatinine Ratio 7.8 (10-20); Blood Urea Nitrogen 7 mg/dl (7-18); Calcium 8.2 mg/dl (8.5-10.1); Carbon Dioxide 24 mmol/L (21-32); Chloride 114 mmol/L (98-107); Est GFR (African American) 83.9; Est GFR (Non-African American) 72.4; Glucose 91 mg/dl (70-99); Phosphorus 2.4 mg/dl (2.5-4.9)
[2020-08-07 07:05] LABS: Sodium 142 mmol/L (136-145)
--- NOTE | 2020-08-07 09:21 | Surgery Progress Note ---
Date of Service August 07, 2020 Assessment & Plan (1) Sigmoid diverticulitis: doing well will sign off. call if any questions or concerns. Admission and Anticipated Discharge Date Admission Date: August 04, 2020 Subjective continues to feel better everyday. denies pain. tolerating food. Physical Exam Physical Exam: alert. nad abd: soft. very minimal ttp. much improved. Results & Data ([facility]) Vital Signs (Past 12 Hours) Vital Signs Temp Pulse Resp BP BP Pulse Ox 08/07/20 06:56 36.5 C 54 L 18 153/85 H 99 08/06/20 23:43 37 C 65 16 158/78 H 98 08/06/20 21:28 60 18 164/79 H 98 PG Care Time/CCT Total # of Minutes Spent Total Time Spent with Patient: Total time spent is greater than 50% in coordination of care (as documented) at patient's floor/unit and/or counseling patient: Coding Level of Care Code 69876 Subseq Hosp Care Lvl 2 Diagnoses Sigmoid diverticulitis K57.32
[2020-08-07] MEDS: FLUTICASONE PROPIONATE NA SPR 16 GM BTL NAE SCH (09:36)
[2020-08-07] MEDS: ATORVASTATIN 10 MG TAB PO SCH (09:37)
[2020-08-07] MEDS: ADVANCED PROBIOTIC 1250 MG CAPSULE PO SCH (09:37)
[2020-08-07] MEDS: LORATADINE 10 MG TAB PO SCH (09:37)
[2020-08-07] MEDS: METOPROLOL SUCC 50MG EXT REL TAB PO SCH (09:37)
[2020-08-07] MEDS: NSS + 20MEQ KCL 20 MEQ/1,000 ML BAG IV SCH (09:37)
[2020-08-07] MEDS: PANTOprazole 40 MG TAB PO SCH (09:37)
--- NOTE | 2020-08-07 13:12 | Hospitalist Progress Note ---
Date of Service August 07, 2020 Assessment & Plan (1) Sigmoid diverticulitis: Patient is a 64 yr female with H/O DM II, HTN, hypothyroidism, IBS, history of C. difficile, history of H. pylori, history of diverticulitis who presents to ED secondary to worsening symptoms in regards to diagnosis of diverticulitis x4 days. Acute sigmoid diverticulitis -CT ABD: Moderate to advanced colonic diverticulosis with evidence of severe acute sigmoid diverticulitis. The degree of inflammation has significantly increased as compared to 07/31/2020. No intraperitoneal free air is identified. There is no evidence of organized fluid collection to suggest abscess on this unenhanced examination. Hepatic steatosis. -Appreciate surgery input -Continue IV Zosyn>> transition to Augmentin upon discharge -Tolerated low fiber diet -Received IV fluids -Plan to discharge home today Diarrhea Stool for C. difficile negative Resolved Hypophosphatemia Replete electrolytes as needed (2) Hypokalemia: Replete as needed Monitor (3) HTN (hypertension): BP stable continue metoprolol and losartan Resume HCTZ as able (4) T2DM (type 2 diabetes mellitus): a1c 6.8 05/2020 currently not on any hypoglycemic agents Monitor BGs (5) Hypothyroid: continue levothyroxine (6) DVT prophylaxis: SQ Lovenox CODE STATUS Full Code Disposition: Plan to discharge home today Admission and Anticipated Discharge Date Admission Date: August 04, 2020 Subjective Patient is seen and examined at bedside States feeling good today Abdominal pain resolved No diarrhea today Tolerated low fiber diet No new complaints Denies chest pain, shortness of breath, dizziness, nausea Review of Systems Review of Systems: All systems reviewed & are unremarkable except as noted in HPI & below Physical Exam Physical Exam: Physical Exam: Vitals signs as noted above General Appearance:Obese, no apparent distress Head: normocephalic, Atraumatic Eyes: normal inspection, EOMI Neck: supple, Trachea midline Respiratory/Chest: Normal breath sounds, CTA, No accessory muscle use Cardiovascular: S1, S2, No murmur Abdomen/GI:Soft, non tender, Bowel sounds present Extremities/Musculoskelatal:normal inspection, no edema Neurologic/Psych:AAOX3, grossly no focal neurological deficits Skin: normal color, warm Results & Data Results & Data ([facility]) Vital Signs (Past 12 Hours) Vital Signs Temp Pulse Resp BP Pulse Ox 08/07/20 06:56 36.5 C 54 L 18 153/85 H 99 Laboratory Results [facility] 08/07/20 05:52 Sodium 142 Potassium TNP Chloride 114 H Carbon Dioxide 24 BUN 7 Creatinine 0.84 Glucose 91 Calcium 8.2 L
--- NOTE | 2020-08-07 13:18 | Discharge Summary ---
Date of Service August 07, 2020 Admission HPI Per Admitting Provider This is a 64-year-old female who has significant past medical history of T2DM, HTN, hypothyroidism, IBS, history of C. difficile, history of H. pylori, history of diverticulitis who presents to ED secondary to worsening symptoms in regards to diagnosis of diverticulitis x4 days. Patient has been experiencing left lower quadrant abdominal pain for approximately 1 week. She was seen and evaluated in ED on 07/31 and diagnosed with acute sigmoid diverticulitis. Due to history of quinolone allergy she was placed on oral Augmentin x3 days. She was discharged home and unfortunately symptoms have not improved. She continues to have left lower quadrant abdominal pain with occasional radiation up to her left upper quadrant. She has been mostly doing liquid diet although she did try Pasta last evening and symptoms worsen. She denies fever, chills, sweats, lightheadedness, dizziness, syncope, chest pain, shortness breath, palpitations, cough, emesis, dysuria, increased urgency or frequency with urination. She does complain of mild nausea and stools are more, "pasty." Last BM was yesterday. She states overall symptoms started approximately 1 week ago. She was seen and evaluated by PCP recently secondary to nausea, diarrhea and epigastric pain. She was placed on cholestyramine. She states after 1 dose of cholestyramine her symptoms started. She does have prior history of diverticulitis. Last c olonoscopy 05/30/2019 revealed sigmoid diverticulosis, hemorrhoids otherwise normal. In ED patient made hemodynamically stable. Lab work notable for leukocytosis 13.57k, H&H stable 14.3 and 40.3, platelet 256, K2.9, BUN 11, creatinine 0.90, glucose 134. CT scan abdomen pelvis revealed moderate to advanced colonic diverticulosis with evidence of severe acute sigmoid diverticulitis. The degree of inflammation is significantly worsened from previous study on 07/31/2020. No intraperitoneal free air is identified and no evidence of organized fluid collection to suggest abscess. She was started on IV Zosyn. Admission Exam Per Admitting Provider Physical Exam Physical Exam: Constitutional: WD/WN, vitals as above, NAD, sitting up in bed, pleasant, conversing easily Head: Normocephalic, Atraumatic Eyes: PERRL, conjunctivae normal, anicteric sclerae ENMT: external ear and nose normal, oropharynx normal Neck: trachea midline, no thyromegaly normal visual inspection Respiratory: normal respiratory effort, lungs clear to auscultation, no wheeze, rales, rhonchi. Normal insp/exp effort, no accessory muscle use Cardiovascular: RRR, no murmur, no edema Vessels: no JVD or carotid bruit Chest: normal inspection of chest Abdomen: minimally distended, tender to palpation LLQ, no guarding, rebound, rigidity, hypoactive bowel sounds, soft, no hepatosplenomegaly appreciated Musculoskeletal: no cyanosis or clubbing, extremities motor strength 5/5 Skin: no rashes, warm and dry normal turgor Neurologic: PERRL, EOMI, accommodation nl, no face palsy, no dysarthria CN's II-XI intact bilaterally and moves all extremities Psychiatric: A+Ox3, euthymic affect Lymphatic: no cervical or axillary lymphadenopathy : deferred Principal Diagnosis Acute sigmoid diverticulitis Hypokalemia Hypophosphatemia Discharge Data Allergies Allergy/AdvReac Type Severity Reaction Status Date / Time Cipro Allergy HIVES Verified 04/04/11 22:43 ciprofloxacin Allergy HIVES Verified 08/04/20 08:30 Quinolones Allergy . Verified 08/04/20 08:30 codeine AdvReac Mild VOMITING Verified 08/04/20 08:30 lidocaine AdvReac Mild EMESIS Verified 08/04/20 08:30 Consultations 08/04/20 09:01 ED Decision to Admit Stat 08/04/20 12:04 Consult General Surgery Routine Procedures Performed CT ABD: Moderate to advanced colonic diverticulosis with evidence of severe acute sigmoid diverticulitis. The degree of inflammation has significantly increased as compared to 07/31/2020. No intraperitoneal free air is identified. There is no evidence of organized fluid collection to suggest abscess on this unenhanced examination. Hepatic steatosis. Ordered Studies 08/04/20 07:42 CT abd pelvis wo con Stat Hospital Course (1) Sigmoid diverticulitis: Patient is a 64 yr female with H/O DM II, HTN, hypothyroidism, IBS, history of C. difficile, history of H. pylori, history of diverticulitis who presents to ED secondary to worsening symptoms in regards to diagnosis of diverticulitis x4 days. Acute sigmoid diverticulitis -CT ABD: Moderate to advanced colonic diverticulosis with evidence of severe acute sigmoid diverticulitis. The degree of inflammation has significantly increased as compared to 07/31/2020. No intraperitoneal free air is identified. There is no evidence of organized fluid collection to suggest abscess on this unenhanced examination. Hepatic steatosis. -Appreciate surgery input -Continue IV Zosyn>> transition to Augmentin upon discharge -Tolerated low fiber diet -Received IV fluids -Plan to discharge home today Diarrhea Stool for C. difficile negative Resolved Hypophosphatemia Replete electrolytes as needed (2) Hypokalemia: Replete as needed Monitor (3) HTN (hypertension): BP stable continue metoprolol and losartan Resume HCTZ as able (4) T2DM (type 2 diabetes mellitus): a1c 6.8 05/2020 currently not on any hypoglycemic agents Monitor BGs (5) Hypothyroid: continue levothyroxine (6) DVT prophylaxis: SQ Lovenox CODE STATUS Full Code Disposition: Plan to discharge home today Total Time Total Time Spent Total Time Spent (In Minutes): 42 minutes Total Time Includes: Examination of the Patient, Discharge Planning, Medication Reconciliation, Communication With Other Providers and Other Discharge Plan Discharge Items Patient Disposition: Home - Self-Care Reason For Visit: ACUTE DIVERTICULITIS,FAILED OUTPT TREATMENT Discharge Diagnosis: Acute sigmoid diverticulitis Hypokalemia Hypophosphatemia Activity: Per Instructions section Exercise/Sports: Gradually increase as tolerated Non-emergency contact: Primary Care Provider Call non-emergency contact if: you have any medication questions, your symptoms worsen, your pain is not controlled, your pain is worsening, your pain is unusual for you, your pain is concerning for you and you have a fever Follow-up/Referrals: Maisha Sauer MD [Primary Care Provider] - (Date & Time 08/11/2020 11:00 AM Provider Maisha Sauer MD Department General Internal Medicine [facility] ) Diet: Carb Consistent or DM2 and Low Fiber Addtl Attending Provider Instructions: Follow-up with your primary care physician Dr. Sauer on 08/11/2020 11:00 AM Follow up with your surgeon as needed Complete the antibiotic course--Augmentin for 1 more week as advised Seek immediate medical attention if your symptoms reoccur or worsen Pending Studies at Discharge: No Stand-Alone Forms: [employer], Smoking Cessation Medications and DC Order Prescriptions: Continued amoxicillin-pot clavulanate [Augmentin] 875-125 mg tablet 1 tab PO TID Qty: 30 RF: 0 ondansetron 4 mg tablet,disintegrating 4 mg PO Q6H PRN (Reason: nausea and vomiting) Qty: 14 RF: 0 metoprolol succinate 50 mg tablet extended release 24 hr 50 mg PO QAM RF: 0 pantoprazole 40 mg tablet,delayed release (DR/EC) 40 mg PO QAM RF: 0 Culturelle 10 billion cell Capsule 1 cap PO QDL RF: 0 fluticasone propionate 50 mcg/actuation [place],Suspension 1 spray INTRANASAL QAM RF: 0 loratadine [Claritin] 10 mg Tablet 10 mg PO QAM RF: 0 levothyroxine 88 mcg Tablet 88 mcg PO DAILY RF: 0 atorvastatin 10 mg tablet 10 mg PO HS RF: 0 losartan 50 mg Tablet 50 mg PO HS RF: 0 hydrochlorothiazide 12.5 mg Tablet 12.5 mg PO HS RF: 0 Probiotic 3 billion cell Capsule 3,000 mmu cells PO DAILY RF: 0 Discharge Orders: Discharge Order (Routine); Ordered 08/07/20 Ordered By: Randy Mckeon/Other Patient Handouts: Low-Fiber Diet Admission Data Admit Date/Time: 08/04/20 09:15 Attending Provider: Randy Osorio Admit Provider: Darien Panda Primary Care Provider: Maisha Sauer Other Providers: Jerald Carroll ; Darien Panda Other Interventions: Discharge Summary Assessment (RN) Last Done: 08/07/20 13:25
== END 2020-08-07 15:14 | disposition home or self-care (01) | DRG 392 ==
LOC: ED 07:23 → 3N 09:15 → SUATTDRO 09:15 → 3N 11:13

== ENCOUNTER 2023-03-23 08:11 | Inpatient (IN) ==
[2023-03-23] MEDS ORDERED: SODIUM CHLORIDE 0.9% 1000ML 1,000 ML IV ONE (08:23)
[2023-03-23 08:52] LABS: Appearance Urine Clear (Clear); Bacteria Urine Automated Negative (Negative); Bilirubin Urine Negative (Negative); Blood Urine Trace (Negative); Color Urine Yellow; Epithelial Cell Urine Auto >30 /lpf (0-5); Glucose Urine UA Negative (Negative); Ketones Urine Trace (Negative); Leukocyte Esterase Urine Trace (Negative); Nitrite Urine Negative (Negative); Protein Urine Negative (Negative); RBC Urine Automated 0-4 /hpf (0-4); Specific Gravity Urine 1.027 (1.000-1.030); Urobilinogen Urine Negative (Negative); pH Urine 5.5 (4.5-7.5)
[2023-03-23] MEDS ORDERED: FAMOTIDINE 20MG IV PUSH 20 MG/5 ML SYR IV STA (09:39)
[2023-03-23] MEDS ORDERED: ONDANSETRON INJ 2 MG/ML 2 ML VIAL IV STA (09:39)
[2023-03-23] MEDS ORDERED: ACETAMINOPHEN 1,000 MG/100 ML VIAL IV STA (09:39)
[2023-03-23 09:40] LABS: Basophils # (auto) 0.04 K/uL (0-0.2); Basophils % (auto) 0.3 %; Eosinophils # (auto) 0.07 K/uL (0-0.50); Eosinophils % (auto) 0.5 %; Hematocrit (blood only) 38.2 % (37.0-47.0); Immature Granulocytes # (auto) 0.05 K/uL (0.01-0.20); Immature Granulocytes % (auto) 0.4 %; Lymphocytes # (auto) 1.54 K/uL (1.2-3.4); Lymphocytes % (auto) 11.7 %; Monocytes # (auto) 1.04 K/uL (0.11-0.59); Monocytes % (auto) 7.9 %; Neutrophils # (auto) 10.39 K/uL (1.40-6.50); Neutrophils % (auto) 79.2 %; RDW Coefficient of Variation 13.2 % (11.5-14.5); RDW Standard Deviation 42.3 fL (36.4-46.3); Red Blood Count 4.34 M/uL (4.20-5.40); White Blood Count 13.13 K/ul (4.8-10.8)
[2023-03-23 09:41] LABS: Albumin Globulin Ratio 1.1 (0.9-2); Albumin Level 3.9 gm/dl (3.4-5.0); BUN Creatinine Ratio 20.8 (10-20); Bilirubin,Total 0.4 mg/dl (0.2-1.0); Calcium 9.4 mg/dl (8.6-10.3); Creatinine Clr Calc Pharmacy 69.2 ml/min; Est GFR (Non-African American) 85.4 ml/min; Globulin 3.7 gm/dl (2.5-4.0); Potassium 3.9 mmol/L (3.5-5.1); Total Protein 7.6 gm/dl (6.0-8.3)
--- NOTE | 2023-03-23 09:41 | Emergency Department Note ---
Impression & Plan Sigmoid diverticulitis, Left lower quadrant abdominal pain, Leukocytosis ED Provider Note NAME: NILESH COOPER AGE: 67 SEX: F ARRIVES VIA: Walk-In INFORMANT: Patient ED PROVIDER(S): Nguyễn Israel MD CHIEF COMPLAINT: Left lower quadrant abdominal pain, diverticulitis. PLAN: Disposition: Admit MEDICAL DECISION MAKING: The patient is a pleasant 57-year-old woman with a past medical history of diverticulitis, type 2 diabetes, hypertension, hypothyroidism, IBS who presents to the emergency department via walk-in for evaluation of continued left lower quadrant pain that persist despite having completed 10-day course of Augmentin twice daily and subsequent seen in this emergency department resumed on Augmentin for 10-day course 3 times daily. She was seen in this emergency department on 03/12 and 03/[address] imaging that demonstrated persistence of her diverticulitis with no abscess or perforation noted. On her recent visit she was offered option for admission however she did prefer trial of outpatient management. She denies any fevers. She reports some nausea denies vomiting. She reports her stool was soft and grayish but denies bloody or black stool. She denies any dizziness, chest pain, shortness of breath, urinary symptoms. On my evaluation the patient is fatigued appearing but no distress, afebrile with blood pressure 140s/80s and vital signs otherwise stable. She appears clinically dry. She has mild tenderness of the left lower quadrant without guarding or rebound. WBC 13K with neutrophil predominance though no left shift. H/H and platelets within normal limits. Chemistry without metabolic acidosis. BUN/creatinine> 20 consistent the patient's clinical dry appearance. Electrolytes and LFTs unremarkable. Lipase not elevated. UA without convincing evidence of infection with epithelial cells present. CT of the abdomen pelvis was performed and demonstrates persistence of acute diverticulitis involving the distal descending colon and sigmoid colon though no significant changes seen since March 14 persistent moderate inflammation and small amount of fluid this evening. No abscess or free air. Upon evaluation patient did report feeling some improvement following IV fluid hydration, famotidine, Zofran and APAP. However, given the persistence of her symptoms she agrees with plan for admission for further management with IV antibiotics. IV Zosyn ordered as patient reports he is status helped in the past. Case was discussed with Samantha Nielsen PAC with Dr. Reyes, [facility] hospitalist, who will evaluate the patient for admission. Triage Nursing notes reviewed and agree them. Prior/outside medical records reviewed Vital Signs: reviewed Differential diagnosis: Gastroenteritis, food borne illness, infections, appendicitis, diverticulitis, inflammatory bowel disease, obstruction, GI bleed, biliary pathology, volvulus, as well as other pathologies. ER treatment provided: See below. Diagnostics interpreted by me: Cardiac Monitoring: An order for continuous cardiac monitoring was placed and demonstrated normal sinus rhythm, 77 bpm, no ectopy. Laboratory studies: See below Imaging studies: See below HPI: The patient is a pleasant 57-year-old woman with a past medical history of diverticulitis, type 2 diabetes, hypertension, hypothyroidism, IBS who presents to the emergency department via walk-in for evaluation of continued left lower quadrant pain that persist despite having completed 10-day course of Augmentin twice daily and subsequent seen in this emergency department resumed on Augmentin for 10-day course 3 times daily. She was seen in this emergency department on 03/12 and 03/[address] imaging that demonstrated persistence of her diverticulitis with no abscess or perforation noted. On her recent visit she was offered option for admission however she did prefer trial of outpatient management. She denies any fevers. She reports some nausea denies vomiting. She reports her stool was soft and grayish but denies bloody or black stool. She denies any dizziness, chest pain, shortness of breath, urinary symptoms. ROS: See above HPI for pertinent positives & negatives. A total of 10 systems reviewed and were otherwise negative. VITALS:See Below PHYSICAL EXAMINATION: GENERAL: Awake, alert, fatigued-appearing, in no distress HENT: Normocephalic, atraumatic. Oropharynx with dry mucous membranes and otherwise unremarkable. EYES: Normal conjunctiva. Sclera non-icteric. NECK: Supple. No nuchal rigidity. FROM. No JVD. RESPIRATORY: Clear to auscultation. CARDIAC: Regular rate, normal rhythm. Extremities warm and well perfused. Pulses equal. ABDOMEN: Soft, non-distended. Mild LLQ tenderness to palpation. No rebound or guarding. No masses. RECTAL: Deferred. MUSCULOSKELETAL: Chest examination reveals no tenderness. The back is symmetrical on inspection without obvious abnormality. There is no CVA tenderness to palpation. No joint edema. LOWER EXTREMITIES: Calves are equal size bilaterally and non-tender. No edema. No discoloration. NEURO: Normal sensorium. No sensory or motor deficits noted. SKIN: No rash or jaundice noted. Nguyễn Israel MD Past Med/Surg History Medical History C. difficile colitis Diverticulitis H. pylori infection Hemorrhoids History of gastric polyp HTN (hypertension) Hypothyroid IBS (irritable bowel syndrome) PVC (premature ventricular contraction) T2DM (type 2 diabetes mellitus) Surgical History History of colonoscopy with polypectomy History of total abdominal hysterectomy Hx of removal of ovary S/P cholecystectomy Family History Mother Hypertension Social History Smoking Status: Never smoker Hx Alcohol Use: No Hx Substance Use: No Preferred Language: Salvadorean Communication Ability: Effective Respiratory Care Program Director Required: No Beliefs That Will Affect Care: None marital status: Current Living Situation: Alone current occupational status: retired current occupation: Retired [employer] How many Children do You have: 6 How many Children do You have Comment: raised 6 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 and one is a practicing Physician [employer] Other Information That Helps Us Care for You: No Feels Safe at Home: Yes Assistive Devices: None Allergies Allergies Allergy/AdvReac Type Severity Reaction Status Date / Time Cipro Allergy HIVES Verified 04/04/11 22:43 ciprofloxacin Allergy HIVES Verified 03/12/23 17:37 Quinolones Allergy . Verified 03/12/23 17:37 codeine AdvReac Mild VOMITING Verified 03/12/23 17:37 lidocaine AdvReac Mild EMESIS Verified 03/12/23 17:37 atorvastatin AdvReac headaches Verified 03/12/23 17:37 metronidazole [From Flagyl] AdvReac Nausea & Verified 03/12/23 17:37 vomiting Home Meds Home Medications Medication Instructions Recorded Confirmed losartan 50 mg tablet 50 mg PO PM 11/09/18 03/23/23 fluticasone propionate 50 1 spray intranasal QAM 08/04/20 03/23/23 mcg/actuation nasal spray,suspension levothyroxine 88 mcg tablet 88 mcg PO DAILYBB 08/04/20 03/23/23 loratadine 10 mg tablet (Claritin) 10 mg PO DAILY 08/04/20 03/23/23 metoprolol succinate 50 mg 50 mg PO PM 08/04/20 03/23/23 tablet,extended release 24 hr metformin 500 mg tablet 500 mg PO QAM 09/15/22 03/23/23 Lactobacillus rhamnosus GG 10 1 cap PO DAILY 03/23/23 03/23/23 billion cell capsule (Culturelle) Women's Multivitamin Gummies 2 ea PO DAILY 03/23/23 03/23/23 famotidine 20 mg tablet 20 mg PO BID PRN Heartburn 03/23/23 03/23/23 Results & Data (ED) Vital Signs Vital Signs - 24 hr 03/23/23 08:13 03/23/23 08:50 03/23/23 08:28 Temperature 36.4 C L Temperature Source Temporal Artery Scan Pulse Rate 77 82 Pulse Rate [Left Finger] 70 Pulse Rate from SpO2 Sensor Respiratory Rate 18 20 Respiratory Effort / Characteristics Non-Labored Spontaneous Non-Labored Respiratory Depth Normal Normal Respiratory Pattern Regular Blood Pressure 148/89 H Blood Pressure [Right Arm] 170/91 H Blood Pressure Mean 108 Blood Pressure Mean [Right Arm] 117 Blood Pressure Position [Right Arm] Pulse Oximetry 98 98 Oxygen Delivery Method Room Air Room Air Sepsis Recent Fever Within 48 Hours No Sepsis New/Unexplained Change in Mental Status No Sepsis Action Taken by Nursing No Action Required 03/23/23 08:40 03/23/23 09:58 03/23/23 08:26 Temperature Temperature Source Pulse Rate 72 Pulse Rate [Left Finger] 73 Pulse Rate from SpO2 Sensor Respiratory Rate 21 14 Respiratory Effort / Characteristics Non-Labored Respiratory Depth Normal Respiratory Pattern Blood Pressure 172/93 H Blood Pressure [Right Arm] 158/80 H Blood Pressure Mean 115 Blood Pressure Mean [Right Arm] 106 Blood Pressure Position [Right Arm] Semi-fowlers Pulse Oximetry 97 98 Oxygen Delivery Method Room Air Sepsis Recent Fever Within 48 Hours Sepsis New/Unexplained Change in Mental Status Sepsis Action Taken by Nursing 03/23/23 08:27 03/23/23 08:30 03/23/23 08:40 Temperature Temperature Source Pulse Rate 85 75 Pulse Rate [Left Finger] Pulse Rate from SpO2 Sensor 83 75 Respiratory Rate 15 16 Respiratory Effort / Characteristics Respiratory Depth Respiratory Pattern Blood Pressure 170/91 H Blood Pressure [Right Arm] Blood Pressure Mean 97 Blood Pressure Mean [Right Arm] Blood Pressure Position [Right Arm] Pulse Oximetry 99 98 Oxygen Delivery Method Sepsis Recent Fever Within 48 Hours Sepsis New/Unexplained Change in Mental Status Sepsis Action Taken by Nursing 03/23/23 08:40 03/23/23 08:50 03/23/23 09:00 Temperature Temperature Source Pulse Rate 75 70 69 Pulse Rate [Left Finger] Pulse Rate from SpO2 Sensor 75 70 69 Respiratory Rate 18 13 16 Respiratory Effort / Characteristics Respiratory Depth Respiratory Pattern Blood Pressure Blood Pressure [Right Arm] Blood Pressure Mean Blood Pressure Mean [Right Arm] Blood Pressure Position [Right Arm] Pulse Oximetry 97 98 98 Oxygen Delivery Method Sepsis Recent Fever Within 48 Hours Sepsis New/Unexplained Change in Mental Status Sepsis Action Taken by Nursing 03/23/23 09:10 03/23/23 09:20 03/23/23 09:30 Temperature Temperature Source Pulse Rate 63 64 64 Pulse Rate [Left Finger] Pulse Rate from SpO2 Sensor 64 63 63 Respiratory Rate 24 15 16 Respiratory Effort / Characteristics Respiratory Depth Respiratory Pattern Blood Pressure Blood Pressure [Right Arm] Blood Pressure Mean Blood Pressure Mean [Right Arm] Blood Pressure Position [Right Arm] Pulse Oximetry 97 96 97 Oxygen Delivery Method Sepsis Recent Fever Within 48 Hours Sepsis New/Unexplained Change in Mental Status Sepsis Action Taken by Nursing 03/23/23 09:40 03/23/23 09:50 03/23/23 09:55 Temperature Temperature Source Pulse Rate 61 68 73 Pulse Rate [Left Finger] Pulse Rate from SpO2 Sensor 61 69 69 Respiratory Rate 17 14 15 Respiratory Effort / Characteristics Respiratory Depth Respiratory Pattern Blood Pressure Blood Pressure [Right Arm] Blood Pressure Mean Blood Pressure Mean [Right Arm] Blood Pressure Position [Right Arm] Pulse Oximetry 99 100 99 Oxygen Delivery Method Sepsis Recent Fever Within 48 Hours Sepsis New/Unexplained Change in Mental Status Sepsis Action Taken by Nursing 03/23/23 09:55 03/23/23 10:00 03/23/23 10:10 Temperature Temperature Source Pulse Rate 63 57 L Pulse Rate [Left Finger] Pulse Rate from SpO2 Sensor 63 61 Respiratory Rate 22 18 Respiratory Effort / Characteristics Respiratory Depth Respiratory Pattern Blood Pressure 158/80 H Blood Pressure [Right Arm] Blood Pressure Mean 132 Blood Pressure Mean [Right Arm] Blood Pressure Position [Right Arm] Pulse Oximetry 99 99 Oxygen Delivery Method Sepsis Recent Fever Within 48 Hours Sepsis New/Unexplained Change in Mental Status Sepsis Action Taken by Nursing 03/23/23 10:18 03/23/23 10:28 03/23/23 10:29 Temperature Temperature Source Pulse Rate 65 63 Pulse Rate [Left Finger] Pulse Rate from SpO2 Sensor 64 Respiratory Rate 24 15 Respiratory Effort / Characteristics Respiratory Depth Respiratory Pattern Blood Pressure 166/88 H Blood Pressure [Right Arm] Blood Pressure Mean 128 Blood Pressure Mean [Right Arm] Blood Pressure Position [Right Arm] Pulse Oximetry 99 Oxygen Delivery Method Sepsis Recent Fever Within 48 Hours Sepsis New/Unexplained Change in Mental Status Sepsis Action Taken by Nursing 03/23/23 10:30 03/23/23 10:40 03/23/23 11:10 Temperature Temperature Source Pulse Rate 64 69 69 Pulse Rate [Left Finger] Pulse Rate from SpO2 Sensor 65 71 68 Respiratory Rate 15 16 15 Respiratory Effort / Characteristics Respiratory Depth Respiratory Pattern Blood Pressure Blood Pressure [Right Arm] Blood Pressure Mean Blood Pressure Mean [Right Arm] Blood Pressure Position [Right Arm] Pulse Oximetry 100 99 98 Oxygen Delivery Method Sepsis Recent Fever Within 48 Hours Sepsis New/Unexplained Change in Mental Status Sepsis Action Taken by Nursing 03/23/23 11:20 03/23/23 11:30 03/23/23 11:40 Temperature Temperature Source Pulse Rate 63 61 60 Pulse Rate [Left Finger] Pulse Rate from SpO2 Sensor 64 61 60 Respiratory Rate 15 12 15 Respiratory Effort / Characteristics Respiratory Depth Respiratory Pattern Blood Pressure Blood Pressure [Right Arm] Blood Pressure Mean Blood Pressure Mean [Right Arm] Blood Pressure Position [Right Arm] Pulse Oximetry 97 97 97 Oxygen Delivery Method Sepsis Recent Fever Within 48 Hours Sepsis New/Unexplained Change in Mental Status Sepsis Action Taken by Nursing 03/23/23 11:50 03/23/23 12:28 03/23/23 12:00 Temperature Temperature Source Pulse Rate 59 L 64 63 Pulse Rate [Left Finger] Pulse Rate from SpO2 Sensor 59 L 62 Respiratory Rate 16 15 Respiratory Effort / Characteristics Respiratory Depth Respiratory Pattern Blood Pressure Blood Pressure [Right Arm] Blood Pressure Mean Blood Pressure Mean [Right Arm] Blood Pressure Position [Right Arm] Pulse Oximetry 97 96 Oxygen Delivery Method Sepsis Recent Fever Within 48 Hours Sepsis New/Unexplained Change in Mental Status Sepsis Action Taken by Nursing 03/23/23 12:10 03/23/23 12:20 03/23/23 12:30 Temperature Temperature Source Pulse Rate 76 58 L 57 L Pulse Rate [Left Finger] Pulse Rate from SpO2 Sensor 73 58 L 57 L Respiratory Rate 15 16 15 Respiratory Effort / Characteristics Respiratory Depth Respiratory Pattern Blood Pressure Blood Pressure [Right Arm] Blood Pressure Mean Blood Pressure Mean [Right Arm] Blood Pressure Position [Right Arm] Pulse Oximetry 95 97 97 Oxygen Delivery Method Sepsis Recent Fever Within 48 Hours Sepsis New/Unexplained Change in Mental Status Sepsis Action Taken by Nursing Laboratory Data Attestation: I reviewed the patient's lab results. 03/23/23 08:47 03/23/23 08:47 Lab Results 03/23/23 03/23/23 03/23/23 Range/Units 08:26 08:47 08:47 WBC 13.13 H (4.8-10.8) K/ul RBC 4.34 (4.20-5.40) M/uL Hgb 13.0 (12.0-16.0) g/dl Hct 38.2 (37.0-47.0) % MCV 88.0 (80.0-100.0) fL MCH 30.0 (25.0-34.0) pg MCHC 34.0 (32.0-36.0) g/dL RDW Std Deviation 42.3 (36.4-46.3) fL RDW Coeff of Kristine 13.2 (11.5-14.5) % Plt Count (130-400) K/uL MPV (9.4-12.4) fL Immature Gran % (Auto) 0.4 % Neut % (Auto) 79.2 % Lymph % (Auto) 11.7 % [place] % (Auto) 7.9 % Eos % (Auto) 0.5 % Baso % (Auto) 0.3 % Neut # (Auto) 10.39 H (1.40-6.50) K/uL Lymph # (Auto) 1.54 (1.2-3.4) K/uL [place] # (Auto) 1.04 H (0.11-0.59) K/uL Eos # (Auto) 0.07 (0-0.50) K/uL Baso # (Auto) 0.04 (0-0.2) K/uL Immature Gran # (Auto) 0.05 (0.01-0.20) K/uL Sodium 138 (136-145) mmol/L Potassium 3.9 (3.5-5.1) mmol/L Chloride 106 (98-107) mmol/L Carbon Dioxide 25 (21-32) mmol/L Anion Gap 7 (3-11) BUN 15 (6-23) mg/dl Creatinine 0.72 (0.6-1.2) mg/dl Est Cr Clr Drug Dosing 69.2 ml/min Est GFR ( Amer) 99.0 ml/min Est GFR (Non-Af Amer) 85.4 ml/min BUN/Creatinine Ratio 20.8 H (10-20) Glucose 133 H (70-99(Fasting)) mg/dl Calcium 9.4 (8.6-10.3) mg/dl Total Bilirubin 0.4 (0.2-1.0) mg/dl AST 13 (13-39) U/L ALT 9 (7-52) U/L Alkaline Phosphatase 82 (34-104) U/L Total Protein 7.6 (6.0-8.3) gm/dl Albumin 3.9 (3.4-5.0) gm/dl Globulin 3.7 (2.5-4.0) gm/dl Albumin/Globulin Ratio 1.1 (0.9-2) Lipase 21 (11-82) U/L Urine Color Yellow Urine Appearance Clear (Clear) Urine pH 5.5 (4.5-7.5) Ur Specific Mcdaniel 1.027 (1.000-1.030) Urine Protein Negative (Negative) Urine Glucose (UA) Negative (Negative) Urine Ketones Trace H (Negative) Urine Blood Trace H (Negative) Urine Nitrite Negative (Negative) Urine Bilirubin Negative (Negative) Urine Urobilinogen Negative (Negative) Ur Leukocyte Esterase Trace H (Negative) Urine WBC (Auto) 1-5 (0-5) /hpf Urine RBC (Auto) 0-4 (0-4) /hpf U Hyaline Cast (Auto) 1-5 (0-5) /lpf U Epithel Cells (Auto) >30 H (0-5) /lpf Urine Bacteria (Auto) Negative (Negative) Administered Medications Enoxaparin Sodium (Enoxaparin Inj 40 Mg/0.4 Ml Syr) 40 mg SQ HS GUCCI Stop: 04/22/23 20:59 Last Admin: 03/23/23 20:02 Dose: 40 mg Documented By: NMS Piperacillin Sod/Tazobactam (Sod 4.5 gm/ Dextrose) 120 mls @ 30 mls/hr IV Q8H GUCCI; Protocol Stop: 04/02/23 17:59 Last Infusion: 03/23/23 22:05 Dose: 0 mls/hr Documented By: Admin: 03/23/23 18:07 Dose: 30 mls/hr Documented By: DALE Lactated Ringer's (Lr) 1,000 mls @ 110 mls/hr IV .Q9H6M GUCCI Stop: 04/22/23 14:08 Last Admin: 03/23/23 14:21 Dose: 110 mls/hr Documented By: DALE Famotidine 20 mg/ Syringe 5 mls @ 2.5 mls/min IV Q12 GUCCI Stop: 04/22/23 20:59 Last Admin: 03/23/23 20:02 Dose: 2.5 mls/min Documented By: IMER Insulin Aspart (Insulin Aspart Per Unit Charge) 0 units SC Q6 [facility] Stop: 04/22/23 16:29 Last Admin: 03/23/23 18:07 Dose: Not Given Documented By: DALE Ketorolac Tromethamine (Ketorolac Tromethamine 15 Mg/Ml Vial) 15 mg IV Q6H PRN PRN Reason: severe pain 7-10 Last Admin: 03/23/23 16:55 Dose: 15 mg Documented By: DALE Discontinued Medications Sodium Chloride (Nss 1000ml) 1,000 mls @ 999 mls/hr IV .Q1H1M ONE Stop: 03/23/23 09:23 Last Infusion: 03/23/23 11:05 Dose: 0 mls/hr Documented By: Admin: 03/23/23 09:00 Dose: 999 mls/hr Documented By: NRB Acetaminophen (Ofirmev) 1,000 mg in 100 mls @ 400 mls/hr IV NOW STA Stop: 03/23/23 09:53 Last Infusion: 03/23/23 11:05 Dose: 0 mls/hr Documented By: Admin: 03/23/23 10:35 Dose: 400 mls/hr Documented By: NRElla Famotidine (Pepcid 20mg Iv Push) 20 mg in 5 mls @ 2.5 mls/min IV NOW STA Stop: 03/23/23 09:40 Last Admin: 03/23/23 10:37 Dose: 2.5 mls/min Documented By: NRElla Piperacillin Sod/Tazobactam Sod (Zosyn) 4.5 gm in 120 mls @ 240 mls/hr IV NOW ONE Stop: 03/23/23 13:00 Last Infusion: 03/23/23 13:07 Dose: 0 mls/hr Documented By: Admin: 03/23/23 12:37 Dose: 240 mls/hr Documented By: MALIKA Ioversol (Optiray 320 100ml) 92 ml IV ONCE ONE Stop: 03/23/23 10:57 Last Admin: 03/23/23 10:56 Dose: 92 ml Documented By: GORDON Ondansetron HCl (Ondansetron Inj 2 Mg/Ml 2 Ml Vial) 4 mg IV NOW STA Stop: 03/23/23 09:40 Last Admin: 03/23/23 10:31 Dose: 4 mg Documented By: NAVARRO Imaging Data Radiologist's Impression: Abdomen/Pelvis CT 03/23/23 09:36 CT OF THE ABDOMEN AND PELVIS WITH CONTRAST CLINICAL HISTORY: Left lower quadrant abdominal pain. COMPARISON STUDY: CT of the abdomen and pelvis March 14, 2023. TECHNIQUE: Following IV administration of 92 mL of Optiray, axial images of the abdomen and pelvis were obtained from the lung bases to the proximal femurs. Images were reviewed in the axial, sagittal, and coronal planes. IV contrast was administered without complication. Automated exposure control was utilized for the study. A dose lowering technique was utilized adhering to the principles of ALARA. CT DOSE: 1292.95 mGy.cm FINDINGS: Lung bases are unremarkable. No pneumatosis, free air or portal venous gas is present. There is hepatic steatosis. No biliary ductal dilatation is identified status post cholecystectomy. The spleen, adrenal glands, kidneys and pancreas are unremarkable. Extensive colonic diverticulosis is noted. Circumferential wall thickening of the distal descending colon with adjacent inflammation and fluid is similar to CT of March 14, 2023. Suspected inflamed diverticulum is noted. No abscess is identified. There is also wall thickening of the proximal sigmoid colon with moderate associated inflammation and a small amount of fluid. This is unchanged. The appendix is normal. Major vasculature is patent. IMPRESSION: Findings suggestive of persistent acute diverticulitis involving the distal descending colon and sigmoid colon. No significant change since CT of March 14, 2023. Persistent moderate inflammation and a small amount of fluid. No abscess. No free air. ACT 112: Negative or not required by law. Electronically signed by: Dwayne Gastelum M.D. 03/23/2023 11:10 AM Discharge Plan Visit Data Chief Complaint: Flank Pain Stated Complaint: PAIN L FLANK,NAUSEA, ED Provider: Nguyễn Israel Discharge Problem: Sigmoid diverticulitis, Left lower quadrant abdominal pain, Leukocytosis Patient Disposition: Admitted As Inpatient Discharge Instructions Interventions: ED Discharge Assessment Last Done: 03/23/23 13:45
[2023-03-23] MEDS ORDERED: OPTIRAY 320 100ml IV ONE (10:56)
--- NOTE | 2023-03-23 11:11 | CT Scan Report ---
CT OF THE ABDOMEN AND PELVIS WITH CONTRAST CLINICAL HISTORY: Left lower quadrant abdominal pain. COMPARISON STUDY: CT of the abdomen and pelvis March 14, 2023. TECHNIQUE: Following IV administration of 92 mL of Optiray, axial images of the abdomen and pelvis we re obtained from the lung bases to the proximal femurs. Images were reviewed in the axial, sagittal, and coronal planes. IV contrast was administered without complication. Automated exposure control wa s utilized for the study. A dose lowering technique was utilized adhering to the principles of ALARA . CT DOSE: 1292.95 mGy.cm FINDINGS: Lung bases are unremarkable. No pneumatosis, free air or portal venous gas is present. Ther e is hepatic steatosis. No biliary ductal dilatation is identified status post cholecystectomy. The s pleen, adrenal glands, kidneys and pancreas are unremarkable. Extensive colonic diverticulosis is not ed. Circumferential wall thickening of the distal descending colon with adjacent inflammation and flu id is similar to CT of March 14, 2023. Suspected inflamed diverticulum is noted. No abscess is identif ied. There is also wall thickening of the proximal sigmoid colon with moderate associated inflammatio n and a small amount of fluid. This is unchanged. The appendix is normal. Major vasculature is patent . IMPRESSION: Findings suggestive of persistent acute diverticulitis involving the distal descending c olon and sigmoid colon. No significant change since CT of March 14, 2023. Persistent moderate inflamma tion and a small amount of fluid. No abscess. No free air. ACT 112: Negative or not required by law. Electronically signed by: Dwayne Gastelum M.D. 03/23/2023 11:10 AM
[2023-03-23] MEDS ORDERED: PIPERACILLIN/TAZOBACTAM 4.5 GM/120 ML BAG IV ONE (12:31)
--- NOTE | 2023-03-23 12:50 | History & Physical Report ---
Date of Service March 23, 2023 Assessment & Plan (1) Abdominal pain: (2) Diverticulitis: (3) T2DM (type 2 diabetes mellitus): (4) HTN (hypertension): Plan This is a 67-year-old female who has significant past medical history of T2DM, HTN, hypothyroidism, IBS, nondiabetic gastroparesis, esophagitis, history of C. difficile, history of diverticulitis and essential tremor who presents to ED secondary to abdominal pain x [address] abdomen pelvis shows findings suggestive of persistent acute diverticulitis involving the descending colon and sigmoid colon which is unchanged from CT in March 14, 2023. Persistent moderate amount of inflammation and small amount of fluid but no abscess or free air. Abdominal pain Acute descending and sigmoid diverticulitis, persistent, failed outpatient oral antibiotic therapy Admit to medical CT scan, lab work and outpatient medical records independently viewed by undersigned Continue IV Zosyn and probiotic w/ hx of cdiff N.p.o. IVF, LR at 110 cc/h, no prior history of CHF Third episode in the last 2 years Consult general surgery Patient wishes to avoid narcotics Placed on IV Tylenol as needed mild to moderate pain, IV Toradol for severe pain max 6 doses Last colonoscopy August 2020 which revealed diverticulosis in the descending and sigmoid colon Pepcid IV twice daily due to patient complaint of increased dyspepsia T2DM Chronic, stable A1c January 2023 6.9 Hold metformin, as needed NovoLog with correction factor only Accu-Cheks every 6 while n.p.o. Hypertension Chronic, stable Continue metoprolol and losartan Hypothyroidism Chronic, stable Continue levothyroxine DVT prophylaxis: Lovenox, patient encouraged to ambulate DNR/DNI PCP: Taylor Dispo: admit to medical Pt was seen and examined in collaboration with Dr. Reyes, please see addendum A total of 75 was spent coordinating, documenting, and providing care for this patient excluding time spent in the performance of separately billed services. This included personally viewing all current laboratories and imaging studies, medication reconciliation, outpatient chart review, and discussion with specialists. History of Present Illness Chief Complaint: Abd pain x 6 weeks. Primary Care Provider: Bessy James PA-C This is a 67-year-old female who has significant past medical history of T2DM, HTN, hypothyroidism, IBS, nondiabetic gastroparesis, esophagitis, history of C. difficile, history of diverticulitis and essential tremor who presents to ED secondary to abdominal pain x 6 weeks. Of significance patient was initially seen in ED on 03/12 secondary to left lower quadrant abdominal pain that had been present for approximately 2-3 weeks prior. She had a CT of abdomen pelvis done earlier in February which showed acute diverticulitis and she finished a course of BID Augmentin x 10 days. She presented to ED on 03/12 due to worsened pain despite antibiotic treatment. At that time she was represcribed Augmentin 3 times a day x 10 days. She then represented back to ED on 03/14 and repeat CAT scan was performed which did not show any evidence of abscess but did show persistent diverticulitis. At that time she declined admission and continued antibiotic course. She feels antibiotics have helped her symptoms; however they never completely resolved. She mostly has been following a liquid diet and has not ate much in the last several weeks. She further complains of chills and nausea. She denies f/s, chest pain, sob, uri, vomiting, dysuria, increased urg/freq urination, hematuria, melena or hematochezia. She also notes increase heart burn and belching for which she has been taking mylanta frequently throughout the day. She has hx of diverticulitis in the past and has seen surgery from [facility] and at that time no surgical intervention warranted. This is in 3rd flare in the last 2 years. Her last c scope per [facility] was 09/16/20 which revealed circumferential prolapse hemorrhoids, multiple small and large mouth diverticula found in the sigmoid and descending colon. Allergies Allergy/AdvReac Type Severity Reaction Status Date / Time Cipro Allergy HIVES Verified 04/04/11 22:43 ciprofloxacin Allergy HIVES Verified 03/12/23 17:37 Quinolones Allergy . Verified 03/12/23 17:37 codeine AdvReac Mild VOMITING Verified 03/12/23 17:37 lidocaine AdvReac Mild EMESIS Verified 03/12/23 17:37 atorvastatin AdvReac headaches Verified 03/12/23 17:37 metronidazole [From Flagyl] AdvReac Nausea & Verified 03/12/23 17:37 vomiting Home Medications Medication Instructions Recorded Confirmed Type losartan 50 mg tablet 50 mg PO PM 11/09/18 03/23/23 History fluticasone propionate 50 1 spray intranasal QAM 08/04/20 03/23/23 History mcg/actuation nasal spray,suspension levothyroxine 88 mcg tablet 88 mcg PO DAILYBB 08/04/20 03/23/23 History loratadine 10 mg tablet (Claritin) 10 mg PO DAILY 08/04/20 03/23/23 History metoprolol succinate 50 mg 50 mg PO PM 08/04/20 03/23/23 History tablet,extended release 24 hr metformin 500 mg tablet 500 mg PO QAM 09/15/22 03/23/23 History Lactobacillus rhamnosus GG 10 1 cap PO DAILY 03/23/23 03/23/23 History billion cell capsule (Culturelle) Women's Multivitamin Gummies 2 ea PO DAILY 03/23/23 03/23/23 History famotidine 20 mg tablet 20 mg PO BID PRN Heartburn 03/23/23 03/23/23 History Past Med/Surg History Medical History C. difficile colitis Diverticulitis H. pylori infection Hemorrhoids History of gastric polyp HTN (hypertension) Hypothyroid IBS (irritable bowel syndrome) PVC (premature ventricular contraction) T2DM (type 2 diabetes mellitus) Surgical History History of colonoscopy with polypectomy History of total abdominal hysterectomy Hx of removal of ovary S/P cholecystectomy Family History Mother Hypertension Social History Smoking Status: Never smoker Hx Alcohol Use: No Hx Substance Use: No Preferred Language: Mauritian Communication Ability: Effective Supervisor Vacuum Metalizing Required: No Beliefs That Will Affect Care: None marital status: Current Living Situation: Alone current occupational status: retired current occupation: Retired [employer] How many Children do You have: 6 How many Children do You have Comment: raised 6 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 and 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 is 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 Other Information That Helps Us Care for You: No Feels Safe at Home: Yes Assistive Devices: None Review of Systems Review of Systems: All systems reviewed & are unremarkable except as noted in HPI & below Physical Exam Physical Exam: Constitutional: WD/WN, vitals as above, NAD, sitting up in bed, pleasant, conversing easily Head: Normocephalic, Atraumatic Eyes: PERRL, conjunctivae normal, anicteric sclerae ENMT: external ear and nose normal, oropharynx normal Neck: trachea midline, no thyromegaly normal visual inspection Respiratory: normal respiratory effort, lungs clear to auscultation, no wheeze, rales, rhonchi. Normal insp/exp effort, no accessory muscle use Cardiovascular: RRR, no murmur, no edema Vessels: no JVD or carotid bruit Chest: normal inspection of chest Abdomen: normal bowel sounds, soft, nontender, no hepatosplenomegaly Musculoskeletal: no cyanosis or clubbing, extremities motor strength 5/5 Skin: no rashes, warm and dry normal turgor Neurologic: PERRL, EOMI, accommodation nl, no face palsy, no dysarthria CN's II-XI intact bilaterally and moves all extremities Psychiatric: A+Ox3, euthymic affect Lymphatic: no cervical or axillary lymphadenopathy : deferred Results & Data Results & Data Vital Signs (Past 12 Hours) Vital Signs Temp Pulse Pulse Resp BP BP Pulse Ox 03/23/23 12:28 64 03/23/23 11:50 59 L 16 97 03/23/23 11:40 60 15 97 03/23/23 11:30 61 12 97 03/23/23 11:20 63 15 97 03/23/23 11:10 69 15 98 03/23/23 10:40 69 16 99 03/23/23 10:30 64 15 100 03/23/23 10:29 63 15 99 03/23/23 10:28 166/88 H 03/23/23 10:18 65 24 03/23/23 10:10 57 L 18 99 03/23/23 10:00 63 22 99 03/23/23 09:55 158/80 H 03/23/23 09:55 73 15 99 03/23/23 09:50 68 14 100 03/23/23 09:40 61 17 99 03/23/23 09:30 64 16 97 03/23/23 09:20 64 15 96 03/23/23 09:10 63 24 97 03/23/23 09:00 69 16 98 03/23/23 08:50 70 13 98 03/23/23 08:40 75 18 97 08/03/23 08:40 170/91 H 03/23/23 08:30 75 16 98 03/23/23 08:27 85 15 99 03/23/23 08:26 172/93 H 03/23/23 09:58 73 14 158/80 H 98 03/23/23 08:40 72 21 97 03/23/23 08:28 82 03/23/23 08:50 70 20 170/91 H 98 03/23/23 08:13 36.4 C L 77 18 148/89 H 98 O2 Del Method 03/23/23 12:28 03/23/23 11:50 03/23/23 11:40 03/23/23 11:30 03/23/23 11:20 03/23/23 11:10 03/23/23 10:40 03/23/23 10:30 03/23/23 10:29 03/23/23 10:28 03/23/23 10:18 03/23/23 10:10 03/23/23 10:00 03/23/23 09:55 03/23/23 09:55 03/23/23 09:50 03/23/23 09:40 03/23/23 09:30 03/23/23 09:20 03/23/23 09:10 03/23/23 09:00 03/23/23 08:50 03/23/23 08:40 03/23/23 08:40 03/23/23 08:30 03/23/23 08:27 03/23/23 08:26 03/23/23 09:58 03/23/23 08:40 Room Air 03/23/23 08:28 03/23/23 08:50 Room Air 03/23/23 08:13 Room Air Diagnostic Findings Abdomen/Pelvis CT 03/23/23 09:36 CT OF THE ABDOMEN AND PELVIS WITH CONTRAST CLINICAL HISTORY: Left lower quadrant abdominal pain. COMPARISON STUDY: CT of the abdomen and pelvis March 14, 2023. TECHNIQUE: Following IV administration of 92 mL of Optiray, axial images of the abdomen and pelvis were obtained from the lung bases to the proximal femurs. Images were reviewed in the axial, sagittal, and coronal planes. IV contrast was administered without complication. Automated exposure control was utilized for the study. A dose lowering technique was utilized adhering to the principles of ALARA. CT DOSE: 1292.95 mGy.cm FINDINGS: Lung bases are unremarkable. No pneumatosis, free air or portal venous gas is present. There is hepatic steatosis. No biliary ductal dilatation is identified status post cholecystectomy. The spleen, adrenal glands, kidneys and pancreas are unremarkable. Extensive colonic diverticulosis is noted. Circumferential wall thickening of the distal descending colon with adjacent inflammation and fluid is similar to CT of March 14, 2023. Suspected inflamed diverticulum is noted. No abscess is identified. There is also wall thickening of the proximal sigmoid colon with moderate associated inflammation and a small amount of fluid. This is unchanged. The appendix is normal. Major vasculature is patent. IMPRESSION: Findings suggestive of persistent acute diverticulitis involving the distal descending colon and sigmoid colon. No significant change since CT of March 14, 2023. Persistent moderate inflammation and a small amount of fluid. No abscess. No free air. ACT 112: Negative or not required by law. Electronically signed by: Dwayne Gastelum M.D. 03/23/2023 11:10 AM Medications Administered Medication List Piperacillin Sod/Tazobactam Sod (Zosyn) 4.5 gm in 120 mls @ 240 mls/hr IV NOW ONE Stop: 03/23/23 13:00 Last Admin: 03/23/23 12:37 Dose: 240 mls/hr Documented By: MALIKA Discontinued Medications Sodium Chloride (Nss 1000ml) 1,000 mls @ 999 mls/hr IV .Q1H1M ONE Stop: 03/23/23 09:23 Last Infusion: 03/23/23 11:05 Dose: 0 mls/hr Documented By: Admin: 03/23/23 09:00 Dose: 999 mls/hr Documented By: NAVARRO Acetaminophen (Ofirmev) 1,000 mg in 100 mls @ 400 mls/hr IV NOW STA Stop: 03/23/23 09:53 Last Infusion: 03/23/23 11:05 Dose: 0 mls/hr Documented By: Admin: 03/23/23 10:35 Dose: 400 mls/hr Documented By: NAVARRO Famotidine (Pepcid 20mg Iv Push) 20 mg in 5 mls @ 2.5 mls/min IV NOW STA Stop: 03/23/23 09:40 Last Admin: 08/03/23 10:37 Dose: 2.5 mls/min Documented By: NAVARRO Ioversol (Optiray 320 100ml) 92 ml IV ONCE ONE Stop: 03/23/23 10:57 Last Admin: 03/23/23 10:56 Dose: 92 ml Documented By: GORDON Ondansetron HCl (Ondansetron Inj 2 Mg/Ml 2 Ml Vial) 4 mg IV NOW STA Stop: 03/23/23 09:40 Last Admin: 03/23/23 10:31 Dose: 4 mg Documented By: NAVARRO ECG Rate (beats per minute): 62 Rhythm: normal sinus Additional Comments: ecg viewed and interpreted by me, no acute st t wave changes COVID-19 Results Results COVID-19 Adm Lab Results: RBC 4.34 M/uL (4.20-5.40) 03/23/23 WBC 13.13 K/ul (4.8-10.8) H 03/23/23 Hgb 13.0 g/dl (12.0-16.0) 03/23/23 Hct 38.2 % (37.0-47.0) 03/23/23 Plt Count K/uL (130-400) 03/23/23 Neutrophils (%) (Auto) 79.2 % 03/23/23 Lymphocytes (%) (Auto) 11.7 % 03/23/23 Monocytes # (Auto) 1.04 K/uL (0.11-0.59) H 03/23/23 Eosinophils # (Auto) 0.07 K/uL (0-0.50) 03/23/23 Immature Granulocyte % (Auto) 0.4 % 03/23/23 Neutrophils # (Auto) 10.39 K/uL (1.40-6.50) H 03/23/23 Lymphocytes # (Auto) 1.54 K/uL (1.2-3.4) 03/23/23 Monocytes # (Auto) 1.04 K/uL (0.11-0.59) H 03/23/23 Eosinophils # (Auto) 0.07 K/uL (0-0.50) 03/23/23 Basophils # (Auto) 0.04 K/uL (0-0.2) 03/23/23 Immature Granulocyte # (Auto) 0.05 K/uL (0.01-0.20) 3 Na 138 mmol/L (136-145) 03/23/23 K 3.9 mmol/L (3.5-5.1) 03/23/23 Cl 106 mmol/L (98-107) 03/23/23 CO2 25 mmol/L (21-32) 03/23/23 Anion Gap 7 (3-11) 03/23/23 BUN 15 mg/dl (6-23) 03/23/23 Creatinine 0.72 mg/dl (0.6-1.2) 03/23/23 BUN/Creatinine Ratio 20.8 (10-20) H 03/23/23 Glucose Level 133 mg/dl (70-99(Fasting)) H 03/23/23 Ca 9.4 mg/dl (8.6-10.3) 03/23/23 Total Bilirubin 0.4 mg/dl (0.2-1.0) 03/23/23 AST/SGOT 13 U/L (13-39) 03/23/23 ALT/SGPT 9 U/L (7-52) 03/23/23 Alkaline Phosphatase 82 U/L (34-104) 03/23/23 Total Protein 7.6 gm/dl (6.0-8.3) 03/23/23 Albumin 3.9 gm/dl (3.4-5.0) 03/23/23 Globulin 3.7 gm/dl (2.5-4.0) 03/23/23 Albumin/Globulin Ratio 1.1 (0.9-2) 03/23/23 Code Status & VTE Plan Code Status FULL CODE VTE Prophylaxis Plan VTE Prophylaxis will be ordered: Yes Supervising Physician Co-Signing Physician Notes I have seen and examined the patient and have discussed the case with the provider above. I agree with the assessment and plan as stated. 67 yo F presents with recurrent diverticulitis. She is reporting pain in her LUQ. She has a h/o cdiff in the past and wants to minimize antibiotic usage as a result. She has had abdominal pain x 6 weeks at this point, unchanged after courses of oral antibiotics. She was placed on zosyn and given Toradol for pain control. She is reporting feeling better. She is hemodynamically stable and afebrile and is mentating clearly. Abdomen is soft, ND and TTP in the LUQ. Labs/images reviewed. There is a mild leukocytosis to 13K, normal chem panel and liver panel. No evidence of UTI. CT a/p with IV contrast reveals acute diverticulitis of the distal descending colon and sigmoid colon. There is persistent moderate inflammation and a small amount of fluid. There is no significant change since CT scan in January of this year. Overall, she will continue on the IV Zosyn pending clinical improvement. Appreciate surgery recommendations. ID also consulted to steer antibiotic recommendations. DO Eric
[2023-03-23] MEDS ORDERED: DEXTROSE 50% 50 ML SYRINGE IV PRN (14:09)
[2023-03-23] MEDS ORDERED: ACETAMINOPHEN 1,000 MG/100 ML VIAL IV PRN (14:09)
[2023-03-23] MEDS ORDERED: CARBOHYDRATES FOR HYPOGLYCEMIA PO PRN (14:09)
[2023-03-23] MEDS ORDERED: GLUCOSE 40% GEL 15 GM TUBE PO PRN (14:09)
[2023-03-23] MEDS ORDERED: GLUCOSE 10 TAB/TUBE PO PRN (14:09)
[2023-03-23] MEDS ORDERED: GLUCAGON FOR INJ 1 MG VIAL SQ PRN (14:09)
[2023-03-23] MEDS: LACTATED RINGER'S 1,000 ML IV SCH ×2 (14:21→23:19)
[2023-03-23] MEDS ORDERED: Nursing to Pharmacy Communication SCH (14:30)
--- NOTE | 2023-03-23 16:14 | Surgery Consultation ---
This patient was seen and examined with the surgical PA. I agree with this plan. Date of Consultation March 23, 2023 Assessment & Plan (1) Diverticulitis: This is a 67yF with a PMH of T2DM, HTN, hypothyroid, hysterectomy and cholecystectomy who presents to the [facility] ED on 03/23/23 with complaints of abdominal pain 2/2 recurring diverticulitis. She has been on outpatient augmentin without much relief. Today in the ER a repeat CT a/p was performed that revealed findings suggestive of persistent acute diverticulitis involving the distal descending colon and sigmoid colon. No significant change since CT of March 14, 2023. Persistent moderate inflammation and a small amount of fluid, no abscess, and no free air. WBC 13, Hbg 13, Cr 0.7. Vital signs are stable and patient is afebrile. On exam abdomen is soft with discomfort in the L upper/mid abdomen primarily. Agree with hospitalization for IV abx. Would keep NPO with IVF and bowel rest for now. No indications for acute surgical intervention at this time. We will follow closely. Patient seen/examined with Dr. Sanchez. History of Present Illness Attending Physician: Keyla Reyes, History of Present Illness This is a 67yF with a PMH of T2DM, HTN, hypothyroid, hysterectomy and cholecystectomy who presents to the [facility] ED on 03/23/23 with complaints of abdominal pain. Of note the patient was recently diagnosed with acute diverticulitis without abscess and was seen in our ER twice of recent in the end of february. She has been on a 10 day course of augmentin prior to this and started another 10 day course, unfortunately her pain has continued. Today in the ER a repeat CT a/p was performed that revealed findings suggestive of persistent acute diverticulitis involving the distal descending colon and sigmoid colon. No significant change since CT of March 14, 2023. Persistent moderate inflammation and a small amount of fluid, no abscess, and no free air. Patient reports + chills, reflux, and bloating. She denies any fevers. She continues to pass flatus. Last colonoscopy was 1-[address] Ortiz. Majority of her pain is located in the L upper and mid abdomen. She states she has had issues with diverticulitis over the last 15 years, but it has become more frequent for her. She did meet with a surgeon last year, but no plans were made for surgery at that time. Allergies Allergy/AdvReac Type Severity Reaction Status Date / Time Cipro Allergy HIVES Verified 04/04/11 22:43 ciprofloxacin Allergy HIVES Verified 03/12/23 17:37 Quinolones Allergy . Verified 03/12/23 17:37 codeine AdvReac Mild VOMITING Verified 03/12/23 17:37 lidocaine AdvReac Mild EMESIS Verified 03/12/23 17:37 atorvastatin AdvReac headaches Verified 03/12/23 17:37 metronidazole [From Flagyl] AdvReac Nausea & Verified 03/12/23 17:37 vomiting Home Medications Medication Instructions Recorded Confirmed Type losartan 50 mg tablet 50 mg PO PM 11/09/18 03/23/23 History fluticasone propionate 50 1 spray intranasal QAM 08/04/20 03/23/23 History mcg/actuation nasal spray,suspension levothyroxine 88 mcg tablet 88 mcg PO DAILYBB 08/04/20 03/23/23 History loratadine 10 mg tablet (Claritin) 10 mg PO DAILY 08/04/20 03/23/23 History metoprolol succinate 50 mg 50 mg PO PM 08/04/20 03/23/23 History tablet,extended release 24 hr metformin 500 mg tablet 500 mg PO QAM 09/15/22 03/23/23 History Lactobacillus rhamnosus GG 10 1 cap PO DAILY 03/23/23 03/23/23 History billion cell capsule (Culturelle) Women's Multivitamin Gummies 2 ea PO DAILY 03/23/23 03/23/23 History famotidine 20 mg tablet 20 mg PO BID PRN Heartburn 03/23/23 03/23/23 History Patient History Medical History C. difficile colitis Diverticulitis H. pylori infection Hemorrhoids History of gastric polyp HTN (hypertension) Hypothyroid IBS (irritable bowel syndrome) PVC (premature ventricular contraction) T2DM (type 2 diabetes mellitus) Surgical History History of colonoscopy with polypectomy History of total abdominal hysterectomy Hx of removal of ovary S/P cholecystectomy Family History Mother Hypertension Social History Smoking Status: Never smoker Hx Alcohol Use: No Hx Substance Use: No Preferred Language: [place] Communication Ability: Effective Shoe Cementer Required: No Beliefs That Will Affect Care: None marital status: Current Living Situation: Alone current occupational status: retired current occupation: Retired [employer] How many Children do You have: 6 How many Children do You have Comment: raised 6 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 and 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 Other Information That Helps Us Care for You: No Feels Safe at Home: Yes Assistive Devices: None Review of Systems Constitutional: + chills; no fever Respiratory: no dyspnea Gastrointestinal: + abdominal pain (Left side of abdomen), + bloating and + nausea; no vomiting + flatus Physical Exam Physical Exam: awake/alert Constitutional: well developed and well nourished; no acute distress Respiratory: normal respiratory effort Cardiovascular: Rate/Rhythm: regular rate Gastrointestinal (Abdomen): Inspection/Auscultation: abdomen not distended Percussion/Palpation: + abdomen tender (ttp in the L upper and mid abdomen) and abdomen soft; no guarding Results & Data Vital Signs (Past 12 Hours) Vital Signs Temp Pulse Pulse Resp BP BP Pulse Ox 03/23/23 14:29 37 C 60 17 133/80 99 03/23/23 13:30 55 L 13 03/23/23 13:30 138/74 03/23/23 13:20 66 17 03/23/23 13:10 61 18 03/23/23 13:00 61 13 03/23/23 13:00 131/77 03/23/23 12:50 63 18 03/23/23 12:40 65 13 03/23/23 12:30 57 L 15 97 03/23/23 12:20 58 L 16 97 03/23/23 12:10 76 15 95 03/23/23 12:00 63 15 96 03/23/23 12:28 64 03/23/23 11:50 59 L 16 97 03/23/23 11:40 60 15 97 03/23/23 11:30 61 12 97 03/23/23 11:20 63 15 97 03/23/23 11:10 69 15 98 03/23/23 10:40 69 16 99 03/23/23 10:30 64 15 100 03/23/23 10:29 63 15 99 03/23/23 10:28 166/88 H 03/23/23 10:18 65 24 03/23/23 10:10 57 L 18 99 03/23/23 10:00 63 22 99 03/23/23 09:55 158/80 H 03/23/23 09:55 73 15 99 03/23/23 09:50 68 14 100 03/23/23 09:40 61 17 99 03/23/23 09:30 64 16 97 03/23/23 09:20 64 15 96 03/23/23 09:10 63 24 97 03/23/23 09:00 69 16 98 03/23/23 08:50 70 13 98 03/23/23 08:40 75 18 97 03/23/23 08:40 170/91 H 03/23/23 08:30 75 16 98 03/23/23 08:27 85 15 99 03/23/23 08:26 172/93 H 03/23/23 09:58 73 14 158/80 H 98 03/23/23 08:40 72 21 97 03/23/23 08:28 82 03/23/23 08:50 70 20 170/91 H 98 03/23/23 08:13 36.4 C L 77 18 148/89 H 98 O2 Del Method 03/23/23 14:29 Room Air 03/23/23 13:30 03/23/23 13:30 03/23/23 13:20 03/23/23 13:10 03/23/23 13:00 03/23/23 13:00 03/23/23 12:50 03/23/23 12:40 03/23/23 12:30 03/23/23 12:20 03/23/23 12:10 03/23/23 12:00 03/23/23 12:28 03/23/23 11:50 03/23/23 11:40 03/23/23 11:30 03/23/23 11:20 03/23/23 11:10 03/23/23 10:40 03/23/23 10:30 03/23/23 10:29 03/23/23 10:28 03/23/23 10:18 03/23/23 10:10 03/23/23 10:00 03/23/23 09:55 03/23/23 09:55 03/23/23 09:50 03/23/23 09:40 03/23/23 09:30 03/23/23 09:20 03/23/23 09:10 03/23/23 09:00 03/23/23 08:50 03/23/23 08:40 03/23/23 08:40 03/23/23 08:30 03/23/23 08:27 03/23/23 08:26 03/23/23 09:58 03/23/23 08:40 Room Air 03/23/23 08:28 03/23/23 08:50 Room Air 03/23/23 08:13 Room Air Diagnostic Findings CT OF THE ABDOMEN AND PELVIS WITH CONTRAST CLINICAL HISTORY: Left lower quadrant abdominal pain. COMPARISON STUDY: CT of the abdomen and pelvis March 14, 2023. TECHNIQUE: Following IV administration of 92 mL of Optiray, axial images of the abdomen and pelvis were obtained from the lung bases to the proximal femurs. Images were reviewed in the axial, sagittal, and coronal planes. IV contrast was administered without complication. Automated exposure control was utilized for the study. A dose lowering technique was utilized adhering to the principles of ALARA. CT DOSE: 1292.95 mGy.cm FINDINGS: Lung bases are unremarkable. No pneumatosis, free air or portal venous gas is present. There is hepatic steatosis. No biliary ductal dilatation is identified status post cholecystectomy. The spleen, adrenal glands, kidneys and pancreas are unremarkable. Extensive colonic diverticulosis is noted. Circumferential wall thickening of the distal descending colon with adjacent inflammation and fluid is similar to CT of March 14, 2023. Suspected inflamed diverticulum is noted. No abscess is identified. There is also wall thickening of the proximal sigmoid colon with moderate associated inflammation and a small amount of fluid. This is unchanged. The appendix is normal. Major vasculature is patent. IMPRESSION: Findings suggestive of persistent acute diverticulitis involving the distal descending colon and sigmoid colon. No significant change since CT of March 14, 2023. Persistent moderate inflammation and a small amount of fluid. No abscess. No free air. ACT 112: Negative or not required by law. Electronically signed by: Dwayne Gastelum M.D. 03/23/2023 11:10 AM PG Care Time/CCT Total # of Minutes Spent Total Time Spent with Patient: Total time spent is greater than 50% in coordination of care (as documented) at patient's floor/unit and/or counseling patient: Coding Level of Care Code 48873 INT INP/OBS CARE Diagnoses Diverticulitis K57.92
[2023-03-23] MEDS ORDERED: INSULIN ASPART PER UNIT CHARGE SC SCH (16:30)
[2023-03-23] MEDS: KETOROLAC TROMETHAMINE 15 MG/ML VIAL IV PRN (16:55)
[2023-03-23] MEDS: PIPERACILLIN/TAZOBACTAM 4.5 GM in DEXTROSE 5% 100 ML IV SCH (18:07)
[2023-03-23] MEDS: INSULIN ASPART PER UNIT CHARGE SC SCH (18:07)
[2023-03-23] MEDS: FAMOTIDINE 20 MG in SYRINGE 3 ML IV SCH (20:02)
[2023-03-23] MEDS: ENOXAPARIN INJ 40 MG/0.4 ML SYR SQ SCH (20:02)
[2023-03-24] MEDS: INSULIN ASPART PER UNIT CHARGE SC SCH ×5 (00:39→20:38)
[2023-03-24] MEDS ORDERED: Nursing to Pharmacy Communication SCH ×2 (01:15→14:00)
[2023-03-24] MEDS: PIPERACILLIN/TAZOBACTAM 4.5 GM in DEXTROSE 5% 100 ML IV SCH ×3 (02:10→17:10)
[2023-03-24] MEDS: LEVOTHYROXINE SODIUM 88 MCG TABLET PO SCH (06:06)
[2023-03-24] MEDS: ACETAMINOPHEN 325 MG TAB PO PRN ×2 (06:06→17:10)
[2023-03-24 07:08] LABS: Basophils # (auto) 0.04 K/uL (0-0.2); Basophils % (auto) 0.8 %; Eosinophils # (auto) 0.13 K/uL (0-0.50); Eosinophils % (auto) 2.4 %; Hematocrit (blood only) 33.8 % (37.0-47.0); Hemoglobin 11.7 g/dl (12.0-16.0); Immature Granulocytes # (auto) 0.01 K/uL (0.01-0.20); Immature Granulocytes % (auto) 0.2 %; Lymphocytes # (auto) 1.42 K/uL (1.2-3.4); Lymphocytes % (auto) 26.6 %; Mean Corpuscular Hemoglobin 30.1 pg (25.0-34.0); Mean Corpuscular Hgb Conc 34.6 g/dL (32.0-36.0); Mean Corpuscular Volume 86.9 fL (80.0-100.0); Monocytes # (auto) 0.49 K/uL (0.11-0.59); Monocytes % (auto) 9.2 %; Neutrophils # (auto) 3.24 K/uL (1.40-6.50); Neutrophils % (auto) 60.8 %; Platelet Count 229 K/uL (130-400); RDW Coefficient of Variation 13.2 % (11.5-14.5); RDW Standard Deviation 41.3 fL (36.4-46.3); Red Blood Count 3.89 M/uL (4.20-5.40); White Blood Count 5.33 K/ul (4.8-10.8)
[2023-03-24] MEDS: FAMOTIDINE 20 MG in SYRINGE 3 ML IV SCH ×2 (07:34→20:45)
[2023-03-24] MEDS: LORATADINE 10 MG TAB PO SCH (07:34)
[2023-03-24] MEDS: FLUTICASONE PROPIONATE NA SPR 16 GM BTL SCH (07:34)
[2023-03-24] MEDS: ADVANCED PROBIOTIC 1250 MG CAPSULE PO SCH (07:34)
[2023-03-24] MEDS: ONDANSETRON INJ 2 MG/ML 2 ML VIAL IV PRN ×2 (07:34→19:19)
[2023-03-24 07:38] LABS: Albumin Level 3.3 gm/dl (3.4-5.0); BUN Creatinine Ratio 11.7 (10-20); Bilirubin,Total 0.5 mg/dl (0.2-1.0); Calcium 8.9 mg/dl (8.6-10.3); Creatinine Clr Calc Pharmacy 64.6 ml/min; Est GFR (African American) 91.3 ml/min; Est GFR (Non-African American) 78.8 ml/min; Globulin 3.3 gm/dl (2.5-4.0); Potassium 3.7 mmol/L (3.5-5.1); Total Protein 6.6 gm/dl (6.0-8.3)
[2023-03-24] MEDS: LACTATED RINGER'S 1,000 ML IV SCH ×2 (07:42→15:57)
--- NOTE | 2023-03-24 09:01 | Surgery Progress Note ---
I saw this patient with the surgical PA and I agree with this plan. Date of Service March 24, 2023 Assessment & Plan (1) Diverticulitis: Plan: Patient here with recurrent diverticulitis, no abscess WBC 5 today, Vitals stable outside of some HTN, afebrile On exam abdomen is soft, non distended, with mild discomfort elicited in the L upper/mid abdomen Continue course of IV abx while in house May have sips/chips, possibly consider clears later today if continues to feel well [facility] surgery covering the weekend Admission and Anticipated Discharge Date Admission Date: March 23, 2023 Subjective Patient reports pain is improved since admission. She states it actually feels better when she is up moving around. She had some mild nausea this AM she attributes to not eating, but otherwise no issues. Passing flatus. Physical Exam Physical Exam: awake/alert, no distress Respiratory: normal respiratory effort Gastrointestinal (Abdomen): Inspection/Auscultation: abdomen not distended Percussion/Palpation: + abdomen tender (mild discomfort in L upper/mid abdomen, improved from yesterday) and abdomen soft Results & Data Vital Signs (Past 12 Hours) Vital Signs Temp Pulse Resp BP Pulse Ox O2 Del Method 03/24/23 07:36 36.6 C 52 L 16 162/74 H 99 Room Air 03/23/23 21:19 37.1 C 54 L 16 158/81 H 97 Room Air PG Care Time/CCT Total # of Minutes Spent Total Time Spent with Patient: Total time spent is greater than 50% in coordination of care (as documented) at patient's floor/unit and/or counseling patient: Coding Level of Care Code 87146 SUB INP/OBS CARE 25MIN Diagnoses Diverticulitis K57.92
[2023-03-24] MEDS ORDERED: CALCIUM CARBONATE 500 MG CHEWABLE TAB PO PRN (12:10)
--- NOTE | 2023-03-24 16:30 | Hospitalist Progress Note ---
Date of Service March 24, 2023 Assessment & Plan (1) Abdominal pain: (2) Diverticulitis: (3) T2DM (type 2 diabetes mellitus): (4) HTN (hypertension): Plan This is a 67-year-old female who has significant past medical history of T2DM, HTN, hypothyroidism, IBS, nondiabetic gastroparesis, esophagitis, history of C. difficile, history of diverticulitis and essential tremor who presents to ED secondary to abdominal pain x [address] abdomen pelvis shows findings suggestive of persistent acute diverticulitis involving the descending colon and sigmoid colon which is unchanged from CT in March 14, 2023. Persistent moderate amount of inflammation and small amount of fluid but no abscess or free air. Abdominal pain Acute descending and sigmoid diverticulitis, persistent, failed outpatient oral antibiotic therapy Admitted to medical CT scan, lab work and outpatient medical records independently viewed by undersigned Continue IV Zosyn and probiotic w/ hx of cdiff Remains n.p.o. as of 03/24/2023 IVF, LR at 110 cc/h, no prior history of CHF Third episode in the last 2 years-was evaluated by surgery as an outpatient for possible intervention Consult general surgery-appreciate input and recommendation Last colonoscopy August 2020 which revealed diverticulosis in the descending and sigmoid colon Pepcid IV twice daily due to patient complaint of increased dyspepsia Clinically better today with minimal pain without any nausea and or vomiting We will continue n.p.o. today and if she feels better will start clears from tomorrow T2DM Chronic, stable A1c January 2023 6.9 Hold metformin, as needed NovoLog with correction factor only Accu-Cheks every 6 while n.p.o. Accu-Chek ACHS Hypertension Chronic, stable Continue metoprolol and losartan Hypothyroidism Chronic, stable Continue levothyroxine DVT prophylaxis: Lovenox, patient encouraged to ambulate DNR/DNI PCP: Taylor Dispo: admit to medical Admission and Anticipated Discharge Date Admission Date: March 23, 2023 Subjective 03/24/2023 The patient was seen and examined in medical floor She has been feeling much better Minimal discomfort in the left lower quadrant No fever and or chills, no nausea and/or vomiting Review of Systems Review of Systems: All systems reviewed and are unremarkable except as noted below Physical Exam Physical Exam: Sitting on a chair without any acute distress Constitutional: well developed, well nourished, + ill appearing and + obese Eyes: PERRL, conjunctivae normal, anicteric sclerae ENMT: external ear and nose normal, oropharynx normal Neck: trachea midline, no thyromegaly Respiratory: no respiratory distress Auscultation: lungs clear to aus cultation bilaterally Cardiovascular: Rate/Rhythm: regular rate and regular rhythm; not tachycardic Heart Sounds: normal S1 and normal S2; no murmur Extremities: no edema Gastrointestinal (Abdomen): Inspection/Auscultation: normal bowel sounds; abdomen not distended Percussion/Palpation: + abdomen tender (Left lower quadrant) and abdomen soft Musculoskeletal: No acute arthritis involving any joint Neurologic: normal touch/pain/proprioception and moves all extremities; no focal motor deficits Psychiatric: A+Ox3, euthymic affect Lymphatic: no cervical or axillary lymphadenopathy Results & Data Results & Data Vital Signs (Past 12 Hours) Vital Signs Temp Pulse Resp BP Pulse Ox O2 Del Method 03/24/23 14:46 36.5 C 55 L 16 144/80 H 98 Room Air 03/24/23 07:36 36.6 C 52 L 16 162/74 H 99 Room Air Laboratory Results Short CBC 03/24/23 Range/Units 06:46 WBC 5.33 (4.8-10.8) K/ul Hgb 11.7 L (12.0-16.0) g/dl Hct 33.8 L (37.0-47.0) % Plt Count 229 (130-400) K/uL BMP 03/24/23 06:46 Sodium 139 Potassium 3.7 Chloride 108 H Carbon Dioxide 24 BUN 9 Creatinine 0.77 Glucose 97 Calcium 8.9 Liver Function 03/24/23 Range/Units 06:46 Total Bilirubin 0.5 (0.2-1.0) mg/dl AST 15 (13-39) U/L ALT 10 (7-52) U/L Alkaline Phosphatase 67 (34-104) U/L Albumin 3.3 L (3.4-5.0) gm/dl Medications Administered Current Inpatient Medications Acetaminophen (Acetaminophen 325 Mg Tab) 650 mg PO Q4H PRN PRN Reason: pain/fever Stop: 04/22/23 14:08 Last Admin: 03/24/23 06:06 Dose: 650 mg Calcium Carbonate (Calcium Carbonate 500 Mg Chewable Tab) 500 mg PO Q6H PRN PRN Reason: Indigestion Stop: 04/23/23 12:09 Dextrose (Dextrose 50% 50 Ml Syringe) 25 - 50 ml IV UD PRN; Protocol PRN Reason: Hypoglycemia Protocol Stop: 04/22/23 14:08 Enoxaparin Sodium (Enoxaparin Inj 40 Mg/0.4 Ml Syr) 40 mg SQ HS [facility] Stop: 04/22/23 20:59 Last Admin: 03/23/23 20:02 Dose: 40 mg Fluticasone Propionate (Fluticasone Propionate Na Spr 16 Gm Btl) 1 sprays NA QAM [facility] Stop: 04/23/23 08:59 Last Admin: 03/24/23 07:34 Dose: 1 sprays Glucagon (Glucagon For Inj 1 Mg Vial) 1 mg SQ UD PRN; Protocol PRN Reason: Hypoglycemia Protocol Stop: 04/22/23 14:08 Glucose (Glucose 10 Tab/Tube) 4 - 8 tab PO UD PRN; Protocol PRN Reason: Hypoglycemia Treatment Stop: 04/22/23 14:08 Glucose (Glucose 40% Gel 15 Gm Tube) 15 - 30 gm PO UD PRN; Protocol PRN Reason: Hypoglycemia Protocol Stop: 04/22/23 14:08 Piperacillin Sod/Tazobactam (Sod 4.5 gm/ Dextrose) 120 mls @ 30 mls/hr IV Q8H [facility]; Protocol Stop: 04/02/23 17:59 Last Infusion: 03/24/23 14:15 Dose: Infused Lactated Ringer's (Lr) 1,000 mls @ 110 mls/hr IV .Q9H6M [facility] Stop: 04/22/23 14:08 Last Admin: 03/24/23 15:57 Dose: 110 mls/hr Famotidine 20 mg/ Syringe 5 mls @ 2.5 mls/min IV Q12 [facility] Stop: 04/22/23 20:59 Last Admin: 03/24/23 07:34 Dose: 2.5 mls/min Acetaminophen (Ofirmev) 1,000 mg in 100 mls @ 400 mls/hr IV Q8H PRN PRN Reason: mild-mod pain 1-6 Stop: 03/26/23 14:08 Insulin Aspart (Insulin Aspart Per Unit Charge) 0 units SC ACHS [facility] Stop: 04/22/23 17:59 Ketorolac Tromethamine (Ketorolac Tromethamine 15 Mg/Ml Vial) 15 mg IV Q6H PRN PRN Reason: severe pain 7-10 Last Admin: 03/23/23 16:55 Dose: 15 mg Lactobacillus Acidophilus (Advanced Probiotic 1250 Mg Capsule) 1 cap PO DAILY [facility] Stop: 04/23/23 08:59 Last Admin: 03/24/23 07:34 Dose: 1 cap Levothyroxine Sodium (Levothyroxine Sodium 88 Mcg Tablet) 88 mcg PO DAILYBB [facility] Stop: 04/23/23 06:29 Last Admin: 03/24/23 06:06 Dose: 88 mcg Loratadine (Loratadine 10 Mg Tab) 10 mg PO DAILY [facility] Stop: 04/23/23 08:59 Last Admin: 03/24/23 07:34 Dose: 10 mg Losartan Potassium (Losartan Potassium 50 Mg Tab) 50 mg PO PM [facility] Stop: 04/23/23 20:59 Metoprolol Succinate (Metoprolol Succ 50mg Ext Rel Tab) 50 mg PO PM [facility] Stop: 04/23/23 20:59 Miscellaneous (Carbohydrates For Hypoglycemia ) 15 - 30 gm PO UD PRN PRN Reason: Hypoglycemia Protocol Stop: 04/22/23 14:08 Ondansetron HCl (Ondansetron Inj 2 Mg/Ml 2 Ml Vial) 4 mg IV Q6H PRN PRN Reason: Nausea Stop: 04/22/23 14:08 Last Admin: 03/24/23 07:34 Dose: 4 mg
[2023-03-24] MEDS: LOSARTAN POTASSIUM 50 MG TAB PO SCH (20:38)
[2023-03-24] MEDS: ENOXAPARIN INJ 40 MG/0.4 ML SYR SQ SCH (20:39)
[2023-03-24] MEDS: METOPROLOL SUCC 50MG EXT REL TAB PO SCH ×2 (20:39→20:45)
[2023-03-25] MEDS: LACTATED RINGER'S 1,000 ML IV SCH ×3 (01:31→20:20)
[2023-03-25] MEDS: PIPERACILLIN/TAZOBACTAM 4.5 GM in DEXTROSE 5% 100 ML IV SCH ×3 (01:31→18:08)
[2023-03-25] MEDS: KETOROLAC TROMETHAMINE 15 MG/ML VIAL IV PRN (01:34)
[2023-03-25] MEDS: LEVOTHYROXINE SODIUM 88 MCG TABLET PO SCH (05:32)
[2023-03-25 07:06] LABS: Basophils # (auto) 0.02 K/uL (0-0.2); Basophils % (auto) 0.5 %; Eosinophils # (auto) 0.12 K/uL (0-0.50); Eosinophils % (auto) 2.7 %; Hematocrit (blood only) 38.1 % (37.0-47.0); Hemoglobin 12.6 g/dl (12.0-16.0); Immature Granulocytes # (auto) 0.01 K/uL (0.01-0.20); Immature Granulocytes % (auto) 0.2 %; Lymphocytes # (auto) 1.48 K/uL (1.2-3.4); Lymphocytes % (auto) 33.3 %; Mean Corpuscular Hemoglobin 29.1 pg (25.0-34.0); Mean Corpuscular Hgb Conc 33.1 g/dL (32.0-36.0); Monocytes # (auto) 0.31 K/uL (0.11-0.59); Neutrophils % (auto) 56.3 %; Platelet Count 262 K/uL (130-400); RDW Standard Deviation 41.6 fL (36.4-46.3); Red Blood Count 4.33 M/uL (4.20-5.40); White Blood Count 4.44 K/ul (4.8-10.8)
[2023-03-25 07:33] LABS: BUN Creatinine Ratio 8.4 (10-20); Calcium 9.4 mg/dl (8.6-10.3); Creatinine Clr Calc Pharmacy 59.9 ml/min; Est GFR (African American) 83.4 ml/min; Est GFR (Non-African American) 71.9 ml/min; Potassium 3.8 mmol/L (3.5-5.1)
[2023-03-25] MEDS: ADVANCED PROBIOTIC 1250 MG CAPSULE PO SCH (08:04)
[2023-03-25] MEDS: LORATADINE 10 MG TAB PO SCH (08:04)
[2023-03-25] MEDS: FAMOTIDINE 20 MG in SYRINGE 3 ML IV SCH ×2 (08:04→21:06)
[2023-03-25] MEDS: FLUTICASONE PROPIONATE NA SPR 16 GM BTL SCH (08:05)
[2023-03-25] MEDS: INSULIN ASPART PER UNIT CHARGE SC SCH ×4 (09:27→21:07)
--- NOTE | 2023-03-25 11:51 | Surgery Progress Note ---
Date of Service March 25, 2023 Assessment & Plan (1) Diverticulitis: Plan: advance diet to fulls con't IV abx good progress Admission and Anticipated Discharge Date Admission Date: March 23, 2023 Subjective minimal pain passing BM no fevers Review of Systems Constitutional: no fever and no chills Respiratory: no cough and no dyspnea Cardiovascular: no chest pain Gastrointestinal: + abdominal pain; no nausea, no vomiting and no diarrhea/loose stools Genitourinary: no dysuria and no urinary hesitancy Musculoskeletal: no back pain Integumentary: no rash Neurologic: no localized weakness and no generalized weakness Psychiatric: no behavioral changes Physical Exam Constitutional: WD/WN, vitals as above Eyes: PERRL, conjunctivae normal, anicteric sclerae ENMT: external ear and nose normal, oropharynx normal Neck: trachea midline Respiratory: normal respiratory effort, lungs clear to auscultation Cardiovascular: RRR, no murmur, no edema Gastrointestinal (Abdomen): Inspection/Auscultation: abdomen normal to inspection and normal bowel sounds; abdomen not distended Percussion/Palpation: abdomen soft; abdomen nontender, no guarding and abdomen not rigid Musculoskeletal: Head/Neck/Chest: + abnormal head shape and + evidence of head trauma Skin: no rashes, warm and dry Psychiatric: Orientation: alert and oriented x 3 Results & Data Vital Signs (Past 12 Hours) Vital Signs Temp Pulse Resp BP Pulse Ox O2 Del Method 03/25/23 07:18 36.7 C 53 L 16 138/77 98 Room Air
--- NOTE | 2023-03-25 14:55 | Hospitalist Progress Note ---
Date of Service March 25, 2023 Assessment & Plan (1) Abdominal pain: (2) Diverticulitis: (3) T2DM (type 2 diabetes mellitus): (4) HTN (hypertension): Plan This is a 67-year-old female who has significant past medical history of T2DM, HTN, hypothyroidism, IBS, nondiabetic gastroparesis, esophagitis, history of C. difficile, history of diverticulitis and essential tremor who presents to ED secondary to abdominal pain x [address] abdomen pelvis shows findings suggestive of persistent acute diverticulitis involving the descending colon and sigmoid colon which is unchanged from CT in March 14, 2023. Persistent moderate amount of inflammation and small amount of fluid but no abscess or free air. Abdominal pain Acute descending and sigmoid diverticulitis, persistent, failed outpatient oral antibiotic therapy Admitted to medical CT scan, lab work and outpatient medical records independently viewed by undersigned Continue IV Zosyn and probiotic w/ hx of cdiff Remains n.p.o. as of 03/24/2023 IVF, LR at 110 cc/h, no prior history of CHF Third episode in the last 2 years-was evaluated by surgery as an outpatient for possible intervention Consult general surgery-appreciate input and recommendation Last colonoscopy August 2020 which revealed diverticulosis in the descending and sigmoid colon Pepcid IV twice daily due to patient complaint of increased dyspepsia Clinically better today with minimal pain without any nausea and or vomiting We will continue n.p.o. today and if she feels better will start clears from tomorrow Clinically much better and will advance to full liquid diet Continue IV antibiotic for now Acute discharge tomorrow T2DM Chronic, stable A1c January 2023 6.9 Hold metformin, as needed NovoLog with correction factor only Accu-Cheks every 6 while n.p.o. Accu-Chek ACHS Blood sugars are okay Hypertension Chronic, stable Continue metoprolol and losartan Blood pressure remains on the upper side at 164/79 Hypothyroidism Chronic, stable Continue levothyroxine DVT prophylaxis: Lovenox, patient encouraged to ambulate DNR/DNI PCP: Taylor Dispo: admit to medical Admission and Anticipated Discharge Date Admission Date: March 23, 2023 Subjective 03/24/2023 The patient was seen and examined in medical floor She has been feeling much better Minimal discomfort in the left lower quadrant No fever and or chills, no nausea and/or vomiting 03/25/2023 The patient was seen and examined in medical floor She has been much better and abdominal pain is almost gone Has been having bowel movement and tolerating liquid diet No fever and or chills Review of Systems Review of Systems: All systems reviewed and are unremarkable except as noted below Physical Exam Physical Exam: Sitting on a chair without any acute distress Constitutional: well developed, well nourished, + ill appearing and + obese Eyes: PERRL, conjunctivae normal, anicteric sclerae ENMT: external ear and nose normal, oropharynx normal Neck: trachea midline, no thyromegaly Respiratory: no respiratory distress Auscultation: lungs clear to auscultation bilaterally Cardiovascular: Rate/Rhythm: regular rate and regular rhythm; not tachycardic Heart Sounds: normal S1 and normal S2; no murmur Extremities: no edema Gastrointestinal (Abdomen): Inspection/Auscultation: normal bowel sounds; ab domen not distended Percussion/Palpation: + abdomen tender (Left lower quadrant) and abdomen soft Neurologic: normal touch/pain/proprioception and moves all extremities; no focal motor deficits Psychiatric: A+Ox3, euthymic affect Lymphatic: no cervical or axillary lymphadenopathy Results & Data Results & Data Vital Signs (Past 12 Hours) Vital Signs Temp Pulse Resp BP Pulse Ox O2 Del Method 03/25/23 14:32 37.1 C 53 L 16 164/79 H 98 Room Air 03/25/23 07:18 36.7 C 53 L 16 138/77 98 Room Air Laboratory Results Short CBC 03/25/23 Range/Units 06:34 WBC 4.44 L (4.8-10.8) K/ul Hgb 12.6 (12.0-16.0) g/dl Hct 38.1 (37.0-47.0) % Plt Count 262 (130-400) K/uL BMP 03/25/23 06:34 Sodium 138 Potassium 3.8 Chloride 107 Carbon Dioxide 24 BUN 7 Creatinine 0.83 Glucose 94 Calcium 9.4 Medications Administered Current Inpatient Medications Acetaminophen (Acetaminophen 325 Mg Tab) 650 mg PO Q4H PRN PRN Reason: pain/fever Stop: 04/22/23 14:08 Last Admin: 03/24/23 17:10 Dose: 650 mg Calcium Carbonate (Calcium Carbonate 500 Mg Chewable Tab) 500 mg PO Q6H PRN PRN Reason: Indigestion Stop: 04/23/23 12:09 Dextrose (Dextrose 50% 50 Ml Syringe) 25 - 50 ml IV UD PRN; Protocol PRN Reason: Hypoglycemia Protocol Stop: 04/22/23 14:08 Enoxaparin Sodium (Enoxaparin Inj 40 Mg/0.4 Ml Syr) 40 mg SQ HS [facility] Stop: 04/22/23 20:59 Last Admin: 03/24/23 20:39 Dose: 40 mg Fluticasone Propionate (Fluticasone Propionate Na Spr 16 Gm Btl) 1 sprays NA QAM [facility] Stop: 04/23/23 08:59 Last Admin: 03/25/23 08:05 Dose: 1 sprays Glucagon (Glucagon For Inj 1 Mg Vial) 1 mg SQ UD PRN; Protocol PRN Reason: Hypoglycemia Protocol Stop: 04/22/23 14:08 Glucose (Glucose 10 Tab/Tube) 4 - 8 tab PO UD PRN; Protocol PRN Reason: Hypoglycemia Treatment Stop: 04/22/23 14:08 Glucose (Glucose 40% Gel 15 Gm Tube) 15 - 30 gm PO UD PRN; Protocol PRN Reason: Hypoglycemia Protocol Stop: 04/22/23 14:08 Piperacillin Sod/Tazobactam (Sod 4.5 gm/ Dextrose) 120 mls @ 30 mls/hr IV Q8H [facility]; Protocol Stop: 04/02/23 17:59 Last Infusion: 03/25/23 14:30 Dose: Infused Lactated Ringer's (Lr) 1,000 mls @ 110 mls/hr IV .Q9H6M [facility] Stop: 04/22/23 14:08 Last Admin: 03/25/23 10:47 Dose: 110 mls/hr Famotidine 20 mg/ Syringe 5 mls @ 2.5 mls/min IV Q12 [facility] Stop: 04/22/23 20:59 Last Admin: 03/25/23 08:04 Dose: 2.5 mls/min Acetaminophen (Ofirmev) 1,000 mg in 100 mls @ 400 mls/hr IV Q8H PRN PRN Reason: mild-mod pain 1-6 Stop: 03/26/23 14:08 Insulin Aspart (Insulin Aspart Per Unit Charge) 0 units SC ACHS [facility] Stop: 04/22/23 17:59 Last Admin: 03/25/23 12:59 Dose: Not Given Ketorolac Tromethamine (Ketorolac Tromethamine 15 Mg/Ml Vial) 15 mg IV Q6H PRN PRN Reason: severe pain 7-10 Last Admin: 03/25/23 01:34 Dose: 15 mg Lactobacillus Acidophilus (Advanced Probiotic 1250 Mg Capsule) 1 cap PO DAILY [facility] Stop: 04/23/23 08:59 Last Admin: 03/25/23 08:04 Dose: 1 cap Levothyroxine Sodium (Levothyroxine Sodium 88 Mcg Tablet) 88 mcg PO DAILYBB [facility] Stop: 04/23/23 06:29 Last Admin: 03/25/23 05:32 Dose: 88 mcg Loratadine (Loratadine 10 Mg Tab) 10 mg PO DAILY [facility] Stop: 04/23/23 08:59 Last Admin: 03/25/23 08:04 Dose: 10 mg Losartan Potassium (Losartan Potassium 50 Mg Tab) 50 mg PO PM [facility] Stop: 04/23/23 20:59 Last Admin: 03/24/23 20:38 Dose: 50 mg Metoprolol Succinate (Metoprolol Succ 50mg Ext Rel Tab) 50 mg PO PM [facility] Stop: 04/23/23 20:59 Last Admin: 03/24/23 20:45 Dose: 50 mg Miscellaneous (Carbohydrates For Hypoglycemia ) 15 - 30 gm PO UD PRN PRN Reason: Hypoglycemia Protocol Stop: 04/22/23 14:08 Ondansetron HCl (Ondansetron Inj 2 Mg/Ml 2 Ml Vial) 4 mg IV Q6H PRN PRN Reason: Nausea Stop: 04/22/23 14:08 Last Admin: 03/24/23 19:19 Dose: 4 mg
[2023-03-25] MEDS ORDERED: METOPROLOL SUCC 25MG EXT REL TAB PO SCH (20:45)
[2023-03-25] MEDS: LOSARTAN POTASSIUM 50 MG TAB PO SCH (21:06)
[2023-03-25] MEDS: ENOXAPARIN INJ 40 MG/0.4 ML SYR SQ SCH (21:06)
[2023-03-25] MEDS ORDERED: ENALAPRILAT 1.25 MG in DEXTROSE 5% 25 ML IV STA (21:55)
[2023-03-25] MEDS ORDERED: hydrALAZINE HCL 20 MG/ML VIAL IV ONE (23:30)
[2023-03-26] MEDS: PIPERACILLIN/TAZOBACTAM 4.5 GM in DEXTROSE 5% 100 ML IV SCH ×2 (02:28→09:13)
[2023-03-26] MEDS: LACTATED RINGER'S 1,000 ML IV SCH (04:57)
[2023-03-26] MEDS: LEVOTHYROXINE SODIUM 88 MCG TABLET PO SCH (06:25)
[2023-03-26 06:40] LABS: Basophils # (auto) 0.03 K/uL (0-0.2); Basophils % (auto) 0.5 %; Eosinophils # (auto) 0.12 K/uL (0-0.50); Eosinophils % (auto) 1.9 %; Hematocrit (blood only) 36.5 % (37.0-47.0); Hemoglobin 12.4 g/dl (12.0-16.0); Immature Granulocytes # (auto) 0.02 K/uL (0.01-0.20); Immature Granulocytes % (auto) 0.3 %; Lymphocytes # (auto) 1.61 K/uL (1.2-3.4); Lymphocytes % (auto) 25.5 %; Mean Corpuscular Hemoglobin 29.7 pg (25.0-34.0); Mean Corpuscular Volume 87.3 fL (80.0-100.0); Mean Platelet Volume 10.3 fL (9.4-12.4); Monocytes # (auto) 0.49 K/uL (0.11-0.59); Monocytes % (auto) 7.8 %; Neutrophils # (auto) 4.05 K/uL (1.40-6.50); Platelet Count 238 K/uL (130-400); RDW Coefficient of Variation 12.9 % (11.5-14.5); RDW Standard Deviation 41.1 fL (36.4-46.3); Red Blood Count 4.18 M/uL (4.20-5.40); White Blood Count 6.32 K/ul (4.8-10.8)
[2023-03-26 07:04] LABS: BUN Creatinine Ratio 6.8 (10-20); Calcium 9.4 mg/dl (8.6-10.3); Creatinine Clr Calc Pharmacy 67.2 ml/min; Est GFR (African American) 95.8 ml/min; Est GFR (Non-African American) 82.7 ml/min; Potassium 3.3 mmol/L (3.5-5.1)
--- NOTE | 2023-03-26 07:16 | Electrocardiogram Report ---
Test Reason : Blood Pressure : / mmHG Vent. Rate : 049 BPM Atrial Rate : 049 BPM P-R Int : 150 ms QRS Dur : 084 ms QT Int : 488 ms P-R-T Axes : 016 -07 019 degrees QTc Int : 440 ms Sinus bradycardia Moderate voltage criteria for LVH, may be normal variant Borderline ECG When compared with ECG of 14-MAR-2023 07:25, No significant change was found Confirmed by Mo Newell ([id number]) on 03/26/2023 7:15:46 AM Referred By: REFERRED SELF Confirmed By:Toi Newell
[2023-03-26 07:36] LABS: Lyme Ab IgG w/WB Rflx Negative (Negative); Lyme Ab IgM w/WB Rflx Negative (Negative)
[2023-03-26] MEDS: ADVANCED PROBIOTIC 1250 MG CAPSULE PO SCH (07:42)
[2023-03-26] MEDS: LORATADINE 10 MG TAB PO SCH (07:42)
[2023-03-26] MEDS: FLUTICASONE PROPIONATE NA SPR 16 GM BTL SCH (07:42)
[2023-03-26] MEDS: FAMOTIDINE 20 MG in SYRINGE 3 ML IV SCH ×2 (07:44→20:15)
[2023-03-26] MEDS ORDERED: POTASSIUM CHLORIDE CRTAB 20 MEQ TABCR PO STA (08:06)
--- NOTE | 2023-03-26 08:27 | Surgery Progress Note ---
Date of Service March 26, 2023 Assessment & Plan (1) Diverticulitis: Plan: doing well con't abx possible switch to po abx soon advance diet Present on Admission?: Yes Admission and Anticipated Discharge Date Admission Date: March 23, 2023 Subjective still a little right flank pain hungry and taking po well advance diet afebrile WBC normal Review of Systems Constitutional: no fever and no chills Respiratory: no cough and no dyspnea Cardiovascular: no chest pain Gastrointestinal: + abdominal pain; no nausea and no vomiting Genitourinary: no dysuria Integumentary: no rash Neurologic: no localized weakness and no generalized weakness Psychiatric: no behavioral changes Physical Exam Constitutional: WD/WN, vitals as above Respiratory: normal respiratory effort, lungs clear to auscultation Cardiovascular: RRR, no murmur, no edema Gastrointestinal (Abdomen): Inspection/Auscultation: abdomen normal to inspection and normal bowel sounds; abdomen not distended Percussion/Palpation: abdomen soft; abdomen nontender, no guarding and abdomen not rigid Musculoskeletal: Head/Neck/Chest: normocephalic and head atraumatic Psychiatric: A+Ox3, euthymic affect Results & Data Vital Signs (Past 12 Hours) Vital Signs Temp Pulse Pulse Resp BP BP Pulse Ox 03/26/23 07:21 36.8 C 55 L 16 151/71 H 98 03/26/23 00:05 56 L 167/62 H 03/25/23 23:48 54 L 177/80 H 03/25/23 21:50 50 L 185/81 H 03/26/23 02:35 55 L 172/74 H 03/25/23 20:42 37 C 53 L 18 180/88 H 199/67 H 97 O2 Del Method 03/26/23 07:21 Room Air 03/26/23 00:05 03/25/23 23:48 03/25/23 21:50 03/26/23 02:35 03/25/23 20:42 Room Air
[2023-03-26] MEDS: INSULIN ASPART PER UNIT CHARGE SC SCH ×4 (08:39→20:16)
[2023-03-26] MEDS ORDERED: METOPROLOL SUCC 25MG EXT REL TAB PO SCH (09:00)
[2023-03-26] MEDS ORDERED: amLODIPine BESYLATE 5 MG TAB PO SCH (09:00)
[2023-03-26] MEDS: ACETAMINOPHEN 325 MG TAB PO PRN (10:28)
[2023-03-26] MEDS: METOPROLOL SUCC 25MG EXT REL TAB PO SCH (11:59)
--- NOTE | 2023-03-26 14:12 | Hospitalist Progress Note ---
Date of Service March 26, 2023 Assessment & Plan (1) Abdominal pain: (2) Diverticulitis: (3) T2DM (type 2 diabetes mellitus): (4) HTN (hypertension): Plan This is a 67-year-old female who has significant past medical history of T2DM, HTN, hypothyroidism, IBS, nondiabetic gastroparesis, esophagitis, history of C. difficile, history of diverticulitis and essential tremor who presents to ED secondary to abdominal pain x [address] abdomen pelvis shows findings suggestive of persistent acute diverticulitis involving the descending colon and sigmoid colon which is unchanged from CT in March 14, 2023. Persistent moderate amount of inflammation and small amount of fluid but no abscess or free air. Abdominal pain Acute descending and sigmoid diverticulitis, persistent, failed outpatient oral antibiotic therapy Admitted to medical CT scan, lab work and outpatient medical records independently viewed by undersigned Continue IV Zosyn and probiotic w/ hx of cdiff Remains n.p.o. as of 03/24/2023 IVF, LR at 110 cc/h, no prior history of CHF Third episode in the last 2 years-was evaluated by surgery as an outpatient for possible intervention Consult general surgery-appreciate input and recommendation Last colonoscopy August 2020 which revealed diverticulosis in the descending and sigmoid colon Pepcid IV twice daily due to patient complaint of increased dyspepsia Clinically better today with minimal pain without any nausea and or vomiting We will continue n.p.o. today and if she feels better will start clears from tomorrow Clinically much better and will advance to full liquid diet Continue IV antibiotic for now Continues to improve and the diet is advanced as tolerated Antibiotics have been changed to oral Bradycardia Has been on beta-ivanna 50 mg +25 mg for ectopics in the past and also blood pressure Heart rate did not go down below 50 Has been having high blood pressure, received 1 dose of amlodipine Discussed with the patient in detail Restart beta-ivanna in a smaller dose and amlodipine will be discontinued T2DM Chronic, stable A1c January 2023 6.9 Hold metformin, as needed NovoLog with correction factor only Accu-Cheks every 6 while n.p.o. Accu-Chek ACHS Blood sugars are okay Hypertension Chronic, stable Continue metoprolol and losartan Blood pressure remains on the upper side at 164/79 Hypothyroidism Chronic, stable Continue levothyroxine DVT prophylaxis: Lovenox, patient encouraged to ambulate DNR/DNI PCP: Taylor Dispo: admit to medical Admission and Anticipated Discharge Date Admission Date: March 23, 2023 Subjective 03/24/2023 The patient was seen and examined in medical floor She has been feeling much better Minimal discomfort in the left lower quadrant No fever and or chills, no nausea and/or vomiting 03/25/2023 The patient was seen and examined in medical floor She has been much better and abdominal pain is almost gone Has been having bowel movement and tolerating liquid diet No fever and or chills 03/26/2023 The patient was seen and examined in medical floor She has been feeling much better with minimal abdominal discomfort Her bowel is moving and we will advance her diet to as tolerated Noted to be bradycardic last evening with a heart rate up around 50 We will decrease the dose of beta-ivanna Review of Systems Review of Systems: All systems reviewed and are unremarkable except as noted below Physical Exam Physical Exam: Sitting on a chair without any acute distress Constitutional: well developed, well nourished, + ill appearing and + obese Eyes: PERRL, conjunctivae normal, anicteric sclerae ENMT: external ear and nose normal, oropharynx normal Neck: trachea midline, no thyromegaly Respiratory: no respiratory distress Auscultation: lungs clear to auscultation bilaterally Cardiovascular: Rate/Rhythm: regular rate and regular rhythm; not tachycardic Heart Sounds: normal S1 and normal S2; no murmur Extremities: no edema Gastrointestinal (Abdomen): Inspection/Auscultation: normal bowel sounds; abdomen not distended Percussion/Palpation: + abdomen tender (Left lower quadrant) and abdomen soft Neurologic: normal touch/pain/proprioception and moves all extremities; no focal motor deficits Psychiatric: A+Ox3, euthymic affect Lymphatic: no cervical or axillary lymphadenopathy Results & Data Results & Data Vital Signs (Past 12 Hours) Vital Signs Temp Pulse Pulse Resp BP BP Pulse Ox 03/26/23 11:48 54 L 147/78 H 03/26/23 07:21 36.8 C 55 L 16 151/71 H 98 03/26/23 02:35 55 L 172/74 H O2 Del Method 03/26/23 11:48 03/26/23 07:21 Room Air 03/26/23 02:35 Laboratory Results Short CBC 03/26/23 Range/Units 05:46 WBC 6.32 (4.8-10.8) K/ul Hgb 12.4 (12.0-16.0) g/dl Hct 36.5 L (37.0-47.0) % Plt Count 238 (130-400) K/uL [facility] 03/26/23 05:46 Sodium 141 Potassium 3.3 L Chloride 108 H Carbon Dioxide 25 BUN 5 L Creatinine 0.74 Glucose 101 H Calcium 9.4 Medications Administered Current Inpatient Medications Acetaminophen (Acetaminophen 325 Mg Tab) 650 mg PO Q4H PRN PRN Reason: pain/fever Stop: 04/22/23 14:08 Last Admin: 03/26/23 10:28 Dose: 650 mg Amoxicillin/Clavulanate Potassium (Amoxicillin/Clavulanate 875 Mg Tab) 1 tab PO BIDM [facility]; Protocol Stop: 04/05/23 16:59 Calcium Carbonate (Calcium Carbonate 500 Mg Chewable Tab) 500 mg PO Q6H PRN PRN Reason: Indigestion Stop: 04/23/23 12:09 Dextrose (Dextrose 50% 50 Ml Syringe) 25 - 50 ml IV UD PRN; Protocol PRN Reason: Hypoglycemia Protocol Stop: 04/22/23 14:08 Enoxaparin Sodium (Enoxaparin Inj 40 Mg/0.4 Ml Syr) 40 mg SQ HS [facility] Stop: 04/22/23 20:59 Last Admin: 03/25/23 21:06 Dose: 40 mg Fluticasone Propionate (Fluticasone Propionate Na Spr 16 Gm Btl) 1 sprays NA QAM [facility] Stop: 04/23/23 08:59 Last Admin: 03/26/23 07:42 Dose: 1 sprays Glucagon (Glucagon For Inj 1 Mg Vial) 1 mg SQ UD PRN; Protocol PRN Reason: Hypoglycemia Protocol Stop: 04/22/23 14:08 Glucose (Glucose 10 Tab/Tube) 4 - 8 tab PO UD PRN; Protocol PRN Reason: Hypoglycemia Treatment Stop: 04/22/23 14:08 Glucose (Glucose 40% Gel 15 Gm Tube) 15 - 30 gm PO UD PRN; Protocol PRN Reason: Hypoglycemia Protocol Stop: 04/22/23 14:08 Famotidine 20 mg/ Syringe 5 mls @ 2.5 mls/min IV Q12 [facility] Stop: 04/22/23 20:59 Last Admin: 03/26/23 07:44 Dose: 2.5 mls/min Insulin Aspart (Insulin Aspart Per Unit Charge) 0 units SC ACHS [facility] Stop: 04/22/23 17:59 Last Admin: 03/26/23 12:33 Dose: Not Given Ketorolac Tromethamine (Ketorolac Tromethamine 15 Mg/Ml Vial) 15 mg IV Q6H PRN PRN Reason: severe pain 7-10 Last Admin: 03/25/23 01:34 Dose: 15 mg Lactobacillus Acidophilus (Advanced Probiotic 1250 Mg Capsule) 1 cap PO DAILY [facility] Stop: 04/23/23 08:59 Last Admin: 03/26/23 07:42 Dose: 1 cap Levothyroxine Sodium (Levothyroxine Sodium 88 Mcg Tablet) 88 mcg PO DAILYBB [facility] Stop: 04/23/23 06:29 Last Admin: 03/26/23 06:25 Dose: 88 mcg Loratadine (Loratadine 10 Mg Tab) 10 mg PO DAILY [facility] Stop: 04/23/23 08:59 Last Admin: 03/26/23 07:42 Dose: 10 mg Losartan Potassium (Losartan Potassium 50 Mg Tab) 50 mg PO PM [facility] Stop: 04/23/23 20:59 Last Admin: 03/25/23 21:06 Dose: 50 mg Metoprolol Succinate (Metoprolol Succ 50mg Ext Rel Tab) 50 mg PO PM [facility] Stop: 04/23/23 20:59 Last Admin: 03/24/23 20:45 Dose: 50 mg Metoprolol Succinate (Metoprolol Succ 25mg Ext Rel Tab) 25 mg PO QAM [facility] Stop: 04/25/23 11:14 Last Admin: 03/26/23 11:59 Dose: Not Given Miscellaneous (Carbohydrates For Hypoglycemia ) 15 - 30 gm PO UD PRN PRN Reason: Hypoglycemia Protocol Stop: 04/22/23 14:08 Ondansetron HCl (Ondansetron Inj 2 Mg/Ml 2 Ml Vial) 4 mg IV Q6H PRN PRN Reason: Nausea Stop: 04/22/23 14:08 Last Admin: 03/24/23 19:19 Dose: 4 mg
[2023-03-26] MEDS: AMOXICILLIN/CLAVULANATE 875 MG TAB PO SCH (16:49)
[2023-03-26] MEDS: KETOROLAC TROMETHAMINE 15 MG/ML VIAL IV PRN (20:15)
[2023-03-26] MEDS: ENOXAPARIN INJ 40 MG/0.4 ML SYR SQ SCH (20:16)
[2023-03-26] MEDS: LOSARTAN POTASSIUM 50 MG TAB PO SCH (20:16)
[2023-03-27] MEDS: LEVOTHYROXINE SODIUM 88 MCG TABLET PO SCH (05:48)
[2023-03-27 07:17] LABS: Basophils # (auto) 0.04 K/uL (0-0.2); Basophils % (auto) 0.7 %; Eosinophils % (auto) 3.4 %; Hemoglobin 12.6 g/dl (12.0-16.0); Immature Granulocytes # (auto) 0.02 K/uL (0.01-0.20); Immature Granulocytes % (auto) 0.3 %; Lymphocytes % (auto) 25.4 %; Mean Corpuscular Hemoglobin 29.5 pg (25.0-34.0); Mean Corpuscular Hgb Conc 34.1 g/dL (32.0-36.0); Mean Corpuscular Volume 86.7 fL (80.0-100.0); Mean Platelet Volume 10.2 fL (9.4-12.4); Monocytes # (auto) 0.47 K/uL (0.11-0.59); Neutrophils # (auto) 3.68 K/uL (1.40-6.50); Neutrophils % (auto) 62.2 %; Platelet Count 232 K/uL (130-400); RDW Coefficient of Variation 13.2 % (11.5-14.5); Red Blood Count 4.27 M/uL (4.20-5.40); White Blood Count 5.91 K/ul (4.8-10.8)
[2023-03-27 07:41] LABS: BUN Creatinine Ratio 14.1 (10-20); Calcium 8.9 mg/dl (8.6-10.3); Creatinine Clr Calc Pharmacy 63.8 ml/min; Est GFR (African American) 89.9 ml/min; Est GFR (Non-African American) 77.6 ml/min; Magnesium 1.8 mg/dl (1.7-2.4); Potassium 3.5 mmol/L (3.5-5.1)
[2023-03-27] MEDS: FLUTICASONE PROPIONATE NA SPR 16 GM BTL SCH (07:48)
[2023-03-27] MEDS: METOPROLOL SUCC 25MG EXT REL TAB PO SCH (07:49)
[2023-03-27] MEDS: LORATADINE 10 MG TAB PO SCH (07:49)
[2023-03-27] MEDS: FAMOTIDINE 20 MG in SYRINGE 3 ML IV SCH (07:49)
[2023-03-27] MEDS: AMOXICILLIN/CLAVULANATE 875 MG TAB PO SCH (07:49)
[2023-03-27] MEDS: ADVANCED PROBIOTIC 1250 MG CAPSULE PO SCH (07:49)
--- NOTE | 2023-03-27 08:25 | Surgery Progress Note ---
Date of Service March 27, 2023 Assessment & Plan (1) Sigmoid diverticulitis: Plan: Patient Offers no complaints, reports is feeling well Denies abdominal pain, nausea, vomiting, SOB, Chest pain, fever, chills Patient reports a BM yesterday, passing flatus tolerating a low fiber diet today WBC 5.9 Patient is stable for d/c from a general surgical stand point May follow up as an outpatient with Dr. Sanchez if patient wishes to pursue surgical intervention. Admission and Anticipated Discharge Date Admission Date: March 23, 2023 Supervising Physician Co-Signing Physician Notes Patient was seen this am. I agree with this plan. Patient may be discharged per medicine. Continue on oral antibiotics for 1 more week after discharge. Recommend low fiber diet for 3 more weeks. Probiotic daily. Subjective Patient sitting up in chair this AM Offers no complaints, reports is feeling well Denies abdominal pain, nausea, vomiting, SOB, Chest pain, fever, chills Patient reports a BM yesterday, passing flatus Review of Systems Constitutional: no fever, no chills and no sweats Respiratory: no dyspnea Cardiovascular: no chest pain Gastrointestinal: no abdominal pain, no bloating, no nausea and no vomiting Physical Exam Constitutional: well developed, cooperative and comfortable alert/awake Respiratory: normal respiratory effort and able to speak in complete sentences; no respiratory distress and does not use accessory muscles Cardiovascular: Rate/Rhythm: regular rate Gastrointestinal (Abdomen): Inspection/Auscultation: abdomen not distended Percussion/Palpation: abdomen soft; abdomen nontender and no guarding Results & Data Vital Signs (Past 12 Hours) Vital Signs Temp Pulse Resp BP BP Pulse Ox O2 Del Method 03/27/23 07:05 98.8 F 52 L 16 154/82 H 160/77 H 99 Room Air PG Care Time/CCT Total # of Minutes Spent Total Time Spent with Patient: Total time spent is greater than 50% in coordination of care (as documented) at patient's floor/unit and/or counseling patient: Coding Level of Care Code 79396 SUB INP/OBS CARE 25MIN Diagnoses Sigmoid diverticulitis K57.32
[2023-03-27] MEDS: INSULIN ASPART PER UNIT CHARGE SC SCH ×2 (08:57→12:43)
[2023-03-27] MEDS ORDERED: LOSARTAN POTASSIUM 50 MG TAB PO ONE (09:46)
--- NOTE | 2023-03-27 11:09 | Hospitalist Progress Note ---
Date of Service March 27, 2023 Assessment & Plan (1) Abdominal pain: (2) Diverticulitis: (3) T2DM (type 2 diabetes mellitus): (4) HTN (hypertension): Plan This is a 67-year-old female who has significant past medical history of T2DM, HTN, hypothyroidism, IBS, nondiabetic gastroparesis, esophagitis, history of C. difficile, history of diverticulitis and essential tremor who presents to ED secondary to abdominal pain x [address] abdomen pelvis shows findings suggestive of persistent acute diverticulitis involving the descending colon and sigmoid colon which is unchanged from CT in March 14, 2023. Persistent moderate amount of inflammation and small amount of fluid but no abscess or free air. Abdominal pain Acute descending and sigmoid diverticulitis, persistent, failed outpatient oral antibiotic therapy Admitted to medical CT scan, lab work and outpatient medical records independently viewed by undersigned Continue IV Zosyn and probiotic w/ hx of cdiff Remains n.p.o. as of 03/24/2023 IVF, LR at 110 cc/h, no prior history of CHF Third episode in the last 2 years-was evaluated by surgery as an outpatient for possible intervention Consult general surgery-appreciate input and recommendation Last colonoscopy August 2020 which revealed diverticulosis in the descending and sigmoid colon Pepcid IV twice daily due to patient complaint of increased dyspepsia Clinically better today with minimal pain without any nausea and or vomiting We will continue n.p.o. today and if she feels better will start clears from tomorrow Clinically much better and will advance to full liquid diet Continue IV antibiotic for now Continues to improve and the diet is advanced as tolerated Antibiotics have been changed to oral We will have 7 days oral antibiotic on discharge with Augmentin We will get appointment with outpatient colorectal surgery and PCP appointment as well Hypertension Chronic, stable Continue metoprolol and losartan Blood pressure remains on the upper side at 164/79 Blood pressure noted very high this morning with systolic more than 180 Discussed with the patient and will increase the dose of losartan on discharge to 100 mg at night Continue small dose of beta-ivanna Bradycardia Has been on beta-ivanna 50 mg +25 mg for ectopics in the past and also blood pressure Heart rate did not go down below 50 Has been having high blood pressure, received 1 dose of amlodipine Discussed with the patient in detail Restart beta-ivanna in a smaller dose and amlodipine will be discontinued Remains bradycardic around 55 and will continue with small dose of beta-ivanna T2DM Chronic, stable A1c January 2023 6.9 Hold metformin, as needed NovoLog with correction factor only Accu-Cheks every 6 while n.p.o. Accu-Chek ACHS Blood sugars are okay Hypothyroidism Chronic, stable Continue levothyroxine DVT prophylaxis: Lovenox, patient encouraged to ambulate DNR/DNI PCP: Taylor Dispo: admit to medical Will be discharged home this afternoon Admission and Anticipated Discharge Date Admission Date: March 23, 2023 Subjective 03/24/2023 The patient was seen and examined in medical floor She has been feeling much better Minimal discomfort in the left lower quadrant No fever and or chills, no nausea and/or vomiting 03/25/2023 The patient was seen and examined in medical floor She has been much better and abdominal pain is almost gone Has been having bowel movement and tolerating liquid diet No fever and or chills 03/26/2023 The patient was seen and examined in medical floor She has been feeling much better with minimal abdominal discomfort Her bowel is moving and we will advance her diet to as tolerated Noted to be bradycardic last evening with a heart rate up around 50 We will decrease the dose of beta-ivanna 03/27/2023 The patient was seen and examined in medical floor She has been feeling much better and has been tolerating regular diet Denies any more abdominal pain and has been having regular bowel movement She was noted to have high blood pressure and was not feeling well this morning which seems to be controlled right now She will be discharged home this afternoon Review of Systems Review of Systems: All systems reviewed and are unremarkable except as noted below Physical Exam Physical Exam: Sitting on a chair without any acute distress Constitutional: well developed, well nourished, + ill appearing and + obese Eyes: PERRL, conjunctivae normal, anicteric sclerae ENMT: external ear and nose normal, oropharynx normal Neck: trachea midline, no thyromegaly Respiratory: no respiratory distress Auscultation: lungs clear to auscultation bilaterally Cardiovascular: Rate/Rhythm: regular rate and regular rhythm; not tachycardic Heart Sounds: normal S1 and normal S2; no murmur Extremities: no edema Gastrointestinal (Abdomen): Inspection/Auscultation: normal bowel sounds; abdomen not distended Percussion/Palpation: abdomen soft; abdomen nontender (Left lower quadrant) Neurologic: normal touch/pain/proprioception and moves all extremities; no focal motor deficits Psychiatric: A+Ox3, euthymic affect Lymphatic: no cervical or axillary lymphadenopathy Results & Data Results & Data Vital Signs (Past 12 Hours) Vital Signs Temp Pulse Resp BP BP Pulse Ox O2 Del Method 03/27/23 10:23 55 L 163/83 H 03/27/23 09:17 36.8 C 63 16 180/83 H 98 Room Air 03/27/23 07:05 37.1 C 52 L 16 154/82 H 160/77 H 99 Room Air Laboratory Results Short CBC 03/27/23 Range/Units 06:29 WBC 5.91 (4.8-10.8) K/ul Hgb 12.6 (12.0-16.0) g/dl Hct 37.0 (37.0-47.0) % Plt Count 232 (130-400) K/uL [facility] 03/27/23 06:29 Sodium 139 Potassium 3.5 Chloride 109 H Carbon Dioxide 24 BUN 11 Creatinine 0.78 Glucose 89 Calcium 8.9 Medications Administered Current Inpatient Medications Acetaminophen (Acetaminophen 325 Mg Tab) 650 mg PO Q4H PRN PRN Reason: pain/fever Stop: 04/22/23 14:08 Last Admin: 03/26/23 10:28 Dose: 650 mg Amoxicillin/Clavulanate Potassium (Amoxicillin/Clavulanate 875 Mg Tab) 1 tab PO BIDM [facility]; Protocol Stop: 04/05/23 16:59 Last Admin: 03/27/23 07:49 Dose: 1 tab Calcium Carbonate (Calcium Carbonate 500 Mg Chewable Tab) 500 mg PO Q6H PRN PRN Reason: Indigestion Stop: 04/23/23 12:09 Dextrose (Dextrose 50% 50 Ml Syringe) 25 - 50 ml IV UD PRN; Protocol PRN Reason: Hypoglycemia Protocol Stop: 04/22/23 14:08 Enoxaparin Sodium (Enoxaparin Inj 40 Mg/0.4 Ml Syr) 40 mg SQ HS [facility] Stop: 04/22/23 20:59 Last Admin: 03/26/23 20:16 Dose: 40 mg Fluticasone Propionate (Fluticasone Propionate Na Spr 16 Gm Btl) 1 sprays NA QAM [facility] Stop: 04/23/23 08:59 Last Admin: 03/27/23 07:48 Dose: 1 sprays Glucagon (Glucagon For Inj 1 Mg Vial) 1 mg SQ UD PRN; Protocol PRN Reason: Hypoglycemia Protocol Stop: 04/22/23 14:08 Glucose (Glucose 10 Tab/Tube) 4 - 8 tab PO UD PRN; Protocol PRN Reason: Hypoglycemia Treatment Stop: 04/22/23 14:08 Glucose (Glucose 40% Gel 15 Gm Tube) 15 - 30 gm PO UD PRN; Protocol PRN Reason: Hypoglycemia Protocol Stop: 04/22/23 14:08 Famotidine 20 mg/ Syringe 5 mls @ 2.5 mls/min IV Q12 [facility] Stop: 04/22/23 20:59 Last Admin: 03/27/23 07:49 Dose: 2.5 mls/min Insulin Aspart (Insulin Aspart Per Unit Charge) 0 units SC ACHS [facility] Stop: 04/22/23 17:59 Last Admin: 03/27/23 08:57 Dose: 3 units Ketorolac Tromethamine (Ketorolac Tromethamine 15 Mg/Ml Vial) 15 mg IV Q6H PRN PRN Reason: severe pain 7-10 Last Admin: 03/26/23 20:15 Dose: 15 mg Lactobacillus Acidophilus (Advanced Probiotic 1250 Mg Capsule) 1 cap PO DAILY [facility] Stop: 04/23/23 08:59 Last Admin: 03/27/23 07:49 Dose: 1 cap Levothyroxine Sodium (Levothyroxine Sodium 88 Mcg Tablet) 88 mcg PO DAILYBB [facility] Stop: 04/23/23 06:29 Last Admin: 03/27/23 05:48 Dose: 88 mcg Loratadine (Loratadine 10 Mg Tab) 10 mg PO DAILY [facility] Stop: 04/23/23 08:59 Last Admin: 03/27/23 07:49 Dose: 10 mg Losartan Potassium (Losartan Potassium 50 Mg Tab) 50 mg PO PM [facility] Stop: 04/23/23 20:59 Last Admin: 03/26/23 20:16 Dose: 50 mg Metoprolol Succinate (Metoprolol Succ 50mg Ext Rel Tab) 50 mg PO PM [facility] Stop: 04/23/23 20:59 Last Admin: 03/24/23 20:45 Dose: 50 mg Metoprolol Succinate (Metoprolol Succ 25mg Ext Rel Tab) 25 mg PO QAM [facility] Stop: 04/25/23 11:14 Last Admin: 03/27/23 07:49 Dose: 25 mg Miscellaneous (Carbohydrates For Hypoglycemia ) 15 - 30 gm PO UD PRN PRN Reason: Hypoglycemia Protocol Stop: 04/22/23 14:08 Ondansetron HCl (Ondansetron Inj 2 Mg/Ml 2 Ml Vial) 4 mg IV Q6H PRN PRN Reason: Nausea Stop: 04/22/23 14:08 Last Admin: 03/24/23 19:19 Dose: 4 mg
--- NOTE | 2023-03-28 17:23 | Discharge Summary ---
Date of Service March 27, 2023 Admission HPI Per Admitting Provider This is a 67-year-old female who has significant past medical history of T2DM, HTN, hypothyroidism, IBS, nondiabetic gastroparesis, esophagitis, history of C. difficile, history of diverticulitis and essential tremor who presents to ED secondary to abdominal pain x 6 weeks. Of significance patient was initially seen in ED on 03/12 secondary to left lower quadrant abdominal pain that had been present for approximately 2-3 weeks prior. She had a CT of abdomen pelvis done earlier in February which showed acute diverticulitis and she finished a course of BID Augmentin x 10 days. She presented to ED on 03/12 due to worsened pain despite antibiotic treatment. At that time she was represcribed Augmentin 3 times a day x 10 days. She then represented back to ED on 03/14 and repeat CAT scan was performed which did not show any evidence of abscess but did show persistent diverticulitis. At that time she declined admission and continued antibiotic course. She feels antibiotics have helped her symptoms; however they never completely resolved. She mostly has been following a liquid diet and has not ate much in the last several weeks. She further complains of chills and nausea. She denies f/s, chest pain, sob, uri, vomiting, dysuria, increased urg/freq urination, hematuria, melena or hematochezia. She also notes increase heart burn and belching for which she has been taking mylanta frequently throughout the day. She has hx of diverticulitis in the past and has seen surgery from [facility] and at that time no surgical intervention warranted. This is in 3rd flare in the last 2 years. Her last c scope per [facility] was 09/16/20 which revealed circumferential prolapse hemorrhoids, multiple small and large mouth diverticula found in the sigmoid and descending colon. Admission Exam Per Admitting Provider Physical Exam: Constitutional: WD/WN, vitals as above, NAD, sitting up in bed, pleasant, conversing easily Head: Normocephalic, Atraumatic Eyes: PERRL, conjunctivae normal, anicteric sclerae ENMT: external ear and nose normal, oropharynx normal Neck: trachea midline, no thyromegaly normal visual inspection Respiratory: normal respiratory effort, lungs clear to auscultation, no wheeze, rales, rhonchi. Normal insp/exp effort, no accessory muscle use Cardiovascular: RRR, no murmur, no edema Vessels: no JVD or carotid bruit Chest: normal inspection of chest Abdomen: normal bowel sounds, soft, nontender, no hepatosplenomegaly Musculoskeletal: no cyanosis or clubbing, extremities motor strength 5/5 Skin: no rashes, warm and dry normal turgor Neurologic: PERRL, EOMI, accommodation nl, no face palsy, no dysarthria CN's II-XI intact bilaterally and moves all extremities Psychiatric: A+Ox3, euthymic affect Lymphatic: no cervical or axillary lymphadenopathy : deferred Principal Diagnosis Acute recurrent diverticulitis Discharge Exam Sitting on a chair without any acute distress Constitutional well developed, well nourished, + ill appearing and + obese Eyes PERRL, conjunctivae normal, anicteric sclerae ENMT external ear and nose normal, oropharynx normal Neck trachea midline, no thyromegaly Respiratory no respiratory distress Auscultation: lungs clear to auscultation bilaterally Cardiovascular Rate/Rhythm: regular rate and regular rhythm; not tachycardic Heart Sounds: normal S1 and normal S2; no murmur Extremities: no edema Gastrointestinal (Abdomen) Inspection/Auscultation: normal bowel sounds; abdomen not distended Percussion/Palpation: abdomen soft; abdomen nontender (Left lower quadrant) Neurologic normal touch/pain/proprioception and moves all extremities; no focal motor deficits Psychiatric A+Ox3, euthymic affect Lymphatic no cervical or axillary lymphadenopathy Discharge Data Allergies Allergy/AdvReac Type Severity Reaction Status Date / Time Cipro Allergy HIVES Verified 04/04/11 22:43 ciprofloxacin Allergy HIVES Verified 03/12/23 17:37 Quinolones Allergy . Verified 03/12/23 17:37 codeine AdvReac Mild VOMITING Verified 03/12/23 17:37 lidocaine AdvReac Mild EMESIS Verified 03/12/23 17:37 atorvastatin AdvReac headaches Verified 03/12/23 17:37 metronidazole [From Flagyl] AdvReac Nausea & Verified 03/12/23 17:37 vomiting Consultations 03/23/23 12:54 ED Decision to Admit Stat 03/23/23 13:30 Consult General Surgery Routine Ordered Studies 03/23/23 09:36 CT abd pelvis IV con only Stat Hospital Course (1) Abdominal pain: (2) Diverticulitis: (3) T2DM (type 2 diabetes mellitus): (4) HTN (hypertension): Plan This is a 67-year-old female who has significant past medical history of T2DM, HTN, hypothyroidism, IBS, nondiabetic gastroparesis, esophagitis, history of C. difficile, history of diverticulitis and essential tremor who presents to ED secondary to abdominal pain x [address] abdomen pelvis shows findings suggestive of persistent acute diverticulitis involving the descending colon and sigmoid colon which is unchanged from CT in March 14, 2023. Persistent moderate amount of inflammation and small amount of fluid but no abscess or free air. Abdominal pain Acute descending and sigmoid diverticulitis, persistent, failed outpatient oral antibiotic therapy Admitted to medical CT scan, lab work and outpatient medical records independently viewed by undersigned Continue IV Zosyn and probiotic w/ hx of cdiff Remains n.p.o. as of 03/24/2023 IVF, LR at 110 cc/h, no prior history of CHF Third episode in the last 2 years-was evaluated by surgery as an outpatient for possible intervention Consult general surgery-appreciate input and recommendation Last colonoscopy August 2020 which revealed diverticulosis in the descending and sigmoid colon Pepcid IV twice daily due to patient complaint of increased dyspepsia Clinically better today with minimal pain without any nausea and or vomiting We will continue n.p.o. today and if she feels better will start clears from tomorrow Clinically much better and will advance to full liquid diet Continue IV antibiotic for now Continues to improve and the diet is advanced as tolerated Antibiotics have been changed to oral We will have 7 days oral antibiotic on discharge with Augmentin We will get appointment with outpatient colorectal surgery and PCP appointment as well Hypertension Chronic, stable Continue metoprolol and losartan Blood pressure remains on the upper side at 164/79 Blood pressure noted very high this morning with systolic more than 180 Discussed with the patient and will increase the dose of losartan on discharge to 100 mg at night Continue small dose of beta-ivanna Bradycardia Has been on beta-ivanna 50 mg +25 mg for ectopics in the past and also blood pressure Heart rate did not go down below 50 Has been having high blood pressure, received 1 dose of amlodipine Discussed with the patient in detail Restart beta-ivanna in a smaller dose and amlodipine will be discontinued Remains bradycardic around 55 and will continue with small dose of beta-ivanna T2DM Chronic, stable A1c January 2023 6.9 Hold metformin, as needed NovoLog with correction factor only Accu-Cheks every 6 while n.p.o. Accu-Chek ACHS Blood sugars are okay Hypothyroidism Chronic, stable Continue levothyroxine DVT prophylaxis: Lovenox, patient encouraged to ambulate DNR/DNI PCP: Taylor Dispo: admit to medical Will be discharged home this afternoon Total Time Total Time Spent Total Time Spent (In Minutes): 35 minutes Discharge Plan Discharge Items Patient Disposition: Home - Self-Care Reason For Visit: ACUTE DIVERTICULITIS, FAILED OUTPATIENT TREATMENT Discharge Diagnosis: Acute recurrent diverticulitis Condition on Discharge: Good Activity: Resume your previous activity Non-emergency contact: Primary Care Provider Call non-emergency contact if: you have any medication questions and your symptoms worsen Follow-up/Referrals: Bessy James PA-C [Primary Care Provider] - (Date & Time 03/30/2023 3:00 PM Provider Bessy James PA-C Department [facility] ) Rodger Sanchez, [Physician] - (You may call the office if you wish to schedule an appointment with [facility] to discuss options regarding your recurrent diverticulitis) Diet: Low Fiber Addtl Attending Provider Instructions: Call your GI physician and schedule a colonoscopy in 6-8 weeks Your blood pressure medications have been changed Small dose of beta-ivanna will be continued Losartan has increased to 100 mg once a day Finish all of your antibiotics and call Dr. Sanchez if you feel like you need a longer course. Pending Studies at Discharge: No Stand-Alone Forms: My [facility], Smoking Cessation Medications and DC Order Prescriptions: New metoprolol succinate 25 mg Tablet Extended Release 24 Hr 25 mg PO QAM Qty: 30 0RF amoxicillin-pot clavulanate 875-125 mg Tablet 1 tab PO BIDM Qty: 14 0RF losartan 100 mg tablet 100 mg PO DAILY Qty: 30 0RF Continued fluticasone propionate 50 mcg/actuation [place],Suspension 1 spray INTRANASAL QAM loratadine [Claritin] 10 mg Tablet 10 mg PO DAILY levothyroxine 88 mcg Tablet 88 mcg PO DAILYBB metformin 500 mg Tablet 500 mg PO QAM Culturelle 10 billion cell Capsule 1 cap PO DAILY Women's Multivitamin Gummies 2 ea PO DAILY famotidine 20 mg tablet 20 mg PO BID PRN (Reason: Heartburn) Discontinued metoprolol succinate 50 mg tablet extended release 24 hr 50 mg PO PM losartan 50 mg Tablet 50 mg PO PM Discharge Orders: Discharge Order (Routine); Ordered 03/27/23 Ordered By: Darien Mckeon/Other Patient Handouts: High Blood Sugar (Hyperglycemia), Hypoglycemia (Low Blood Sugar), Diabetes: Meal Planning, Type 2 Diabetes Admission Data Admit Date/Time: 03/23/23 12:40 Attending Provider: Darien Panda Admit Provider: Keyla Reyes Primary Care Provider: Bessy James Other Providers: Keyla Reyes ; Rodger Sanchez Other Interventions: Discharge Summary Assessment (RN) Last Done: 03/27/23 13:11
== END 2023-03-27 13:50 | disposition home or self-care (01) | DRG 392 ==
LOC: ED 08:11 → 3N 12:40 → SUATTDRO 12:40 → 3N 13:45